=== PATIENT | male | born 2005 | race African-American/Black ===

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

== ENCOUNTER 2024-11-13 23:36 | Emergency (ER) | payer OTHER, MEDICAID, SELFPAY ==
[2024-11-13 23:38] VITALS: BP 105/60; PULSE 88; RESP 18; O2SAT 98
[2024-11-14 01:10] VITALS: BP 117/61; PULSE 65; RESP 18; TEMP 36.8; O2SAT 99
[2024-11-14 01:28] VITALS: BP 117/61; PULSE 65; RESP 16; O2SAT 100
--- NOTE | 2024-11-14 01:31 | ED_ITS ---
[facility] - General Adult General Chief complaint: Unspecified Stated complaint: pole fell on r foot, lac, wound care, cold symp Time Seen by Provider: 11/14/24 00:15 History of Present Illness HPI narrative: 19-year-old otherwise healthy male presenting to the emergency department for right foot abrasion. He presents from home via EMS. States that a small pole fell onto his right foot he has an abrasion. Wanted wound checked out. Ambulatory without any difficulty. Denies any pain. Tetanus is up-to-date according to the patient. Small abrasion noted to the dorsal aspect of the right foot. No signs of swelling, erythema, ecchymoses, displacement or fracture on exam. Related Data Allergies Allergy/AdvReac Type Severity Reaction Status Date / Time chlorpromazine (From Allergy Swelling Verified 02/18/23 20:29 Thorazine) Review of Systems Review of Systems: As reviewed above in [facility] Social History Social History Substance use type: marijuana Exam Narrative: GENERAL: [Well-appearing, well-nourished, and in no acute distress.] HEAD: [Normocephalic, atraumatic.] EYES: [PERRLA and EOMI.] ENT: Nares clear, no rhinorrhea or epistaxis. Mucous membranes moist. NECK: Supple. CHEST: [Clear to auscultation. No respiratory distress.] HEART: [Regular rate and rhythm]. No murmur heard. [Normal peripheral pulses.] ABDOMEN: [Soft, nondistended], [nontender], [No rigidity or guarding] EXTREMITIES: Normal range of motion. No edema. Full range of motion of the ankle and major joints of the right lower extremity. No tenderness to palpation over the area of injury. Small very superficial skin abrasion without any depth or laceration. No bleeding. No swelling or deformity. No pain with palpation. SKIN: Warm, dry, no rash. NEURO: [No focal deficits]. Alert and oriented [x3.] PSYCH: [Normal mood and affect.] Course Vital Signs Vital signs: Vital Signs Pulse Rate 88 11/13/24 23:38 Respiratory Rate 18 11/13/24 23:38 Blood Pressure 105/60 11/13/24 23:38 Pulse Oximetry 98 11/13/24 23:38 Oxygen Delivery Room Air 11/13/24 23:38 Temperature 36.8 C 11/14/24 01:10 Pulse Rate 70 11/14/24 01:49 Respiratory Rate 16 11/14/24 01:49 Blood Pressure 114/60 11/14/24 01:49 Pulse Oximetry 100 11/14/24 01:49 Oxygen Delivery Room Air 11/14/24 01:10 Medical Decision Making MDM Narrative Medical decision making narrative: 19-year-old otherwise healthy male presenting to the emergency department for right foot abrasion. He presents from home via EMS. States that a small pole fell onto his right foot and he has an abrasion. Wanted wound checked out. Ambulatory without any difficulty. Denies any pain. Tetanus is up-to-date according to the patient. Small abrasion noted to the dorsal aspect of the right foot. No signs of swelling, erythema, ecchymoses, displacement or fracture on exam. Normal DP pulse, normal vital signs. Abrasion covered with a bandage after bacitracin applied. No signs of a fracture. Discharged home. Ambulated without difficulty. Medical Records Medical records reviewed: Yes I reviewed the external patient's medical records. Vital Signs Vital Signs: Vital Signs Pulse Rate 88 11/13/24 23:38 Respiratory Rate 18 11/13/24 23:38 Blood Pressure 105/60 11/13/24 23:38 Pulse Oximetry 98 11/13/24 23:38 Oxygen Delivery Room Air 11/13/24 23:38 Temperature 36.8 C 11/14/24 01:10 Pulse Rate 70 11/14/24 01:49 Respiratory Rate 16 11/14/24 01:49 Blood Pressure 114/60 11/14/24 01:49 Pulse Oximetry 100 11/14/24 01:49 Oxygen Delivery Room Air 11/14/24 01:10 Discharge Plan Discharge Clinical Impression: Abrasion of foot Patient Disposition: Home Condition: Stable Instructions: Antibiotic Form, Abrasion (ED) Additional Instructions: No signs of significant injury, superficial abrasion to the right foot. Topical antibiotic such as bacitracin is all that is needed. Keep area covered with bandage. Tylenol and ibuprofen for pain control. Follow-up with regular doctor. Patient Language: Sinhala Prescriptions: New bacitracin 500 unit/gram ointment 1 applic topical Q8H Qty: 14 0RF Follow-up/Referrals: UNKNOWN,DOCTOR [Primary Care Provider] - Time of Disposition: 01:31
[2024-11-14] MEDS: BACITRACIN OINTMENT 15 GM TUBE 1 APPLIC TOPICAL (01:34)
[2024-11-14 01:49] VITALS: BP 114/60; PULSE 70; RESP 16; O2SAT 100
== END 2024-11-14 01:48 | disposition home or self-care (01) ==
PROVIDERS: Emergency Provider Student in an Organized Health Care Education/Training Program
DX: S90.811A Abrasion, right foot, initial encounter (principal); W20.8XXA Other cause of strike by thrown, projected or falling object, initial encounter
CPT/HCPCS: 99283; A9270

== ENCOUNTER 2024-11-15 14:07 | Emergency (ER) | payer SELFPAY ==
[2024-11-15 14:21] VITALS: BP 124/67; PULSE 122; RESP 16; TEMP 36.4; O2SAT 99
== END 2024-11-15 15:47 | disposition left against medical advice (07) ==
DX: J02.9 Acute pharyngitis, unspecified (principal)
CPT/HCPCS: 99199

== ENCOUNTER 2024-11-15 21:05 | Emergency (ER) | payer SELFPAY ==
[2024-11-15 21:06] VITALS: BP 119/52; PULSE 108; RESP 16; TEMP 36.7; O2SAT 97
--- NOTE | 2024-11-15 22:12 | PC.NURSE ---
Pt was escorted out by ED security due to pt harrassing other pt waiting to be seen. other Pts came up to intake desk complaining that this pt was going around asking visitors and pts for money. Pt states he wa waiting for his ride and denies asking for money. Pt is currently waiting at bus stop and is no longer wanting to be seen.
== END 2024-11-15 22:12 | disposition left against medical advice (07) ==
DX: R11.2 Nausea with vomiting, unspecified (principal)
CPT/HCPCS: 99199

== ENCOUNTER 2024-12-18 21:50 | Emergency (ER) | payer MEDICAID, SELFPAY ==
--- OUTSIDE RECORDS SUMMARY | 2024-12-16 23:30 | XMS_ITS | Encounter Summary ---
Author Organization [facility] Healthcare Address [address] [place] [address] Care Team Providers Care Digital Advertising Specialist Name Role Phone No, Physician Primary Care Provider [phone] No, Physician Unavailable No, Physician Unavailable No, Physician Unavailable No, Physician Unavailable Encounter Details Date Type Department Care Team (Late st Contact Info) Description 12/16/2024 11:30 PM CDT - 12/17/2024 12:17 AM CDT Emergency [facility] Emergency Department [address] [place] [id number] Discharge Disposition: Left without being seen Social History Tobacco Use Types Packs/Day Years Used Date Smoking Tobacco: Every Day Cigarettes Alcohol Use Standard Drinks/Week Comments Not Currently 0 (1 standard drink = 0.6 oz pur e alcohol) AUDIT-C Answer Date Recorded Q1: How often do you have a drink containing alc ohol? Never 08/30/2020 Average Number of Drinks Not on file 021 Frequency of Binge Drinking Not on file 10/2020 Social Connection and Isolation Panel Answer Date Recorded In a typical week, how many times do you talk on the phone with family, friends, or neighbors? Patient unable to answer 12/06/2024 How often do you get togethe r with friends or relatives? Patient unable to answer 12/06/2024 How often do you attend chur ch or spiritism services? Patient unable to answer 12/06/2024 Do you belong to any clubs o r organizations such as pentecostal groups, unions, fraternal or athletic groups, or school groups? Patient unable to answer 12/06/2024 How often do you attend meet ings of the clubs or organizations you belong to? Patient unable to answer 12/06/2024 Are you , , di vorced, , never , or living with a partner? Patient unable to answer 12/06/2024 Overall Financial Resource Strain (CARDIA) Answe r Date Recorded How hard is it for you to pa y for the very basics like food, housing, medical care, and heating? Very hard 12/06/2024 Hunger Vital Sign Answer Date Recorded Within the past 12 months, y ou worried that your food would run out before you got the money to buy more. Often true 12/07/19 25 Within the past 12 months, t he food you bought just didn't last and you didn't have money to get more. Often true 12/06/2024 PRAPARE - Transportation Answer Date Re corded In the past 12 months, has l ack of transportation kept you from medical appointments or from getting medications? Yes 11/24 In the past 12 months, has l ack of transportation kept you from meetings, work, or from getting things needed for daily living? Yes 12/06/2024 Housing Stability Vital Sign Answer Lv e Recorded In the last 12 months, was t here a time when you were not able to pay the mortgage or rent on time? Yes 12/06/2024 In the past 12 months, how m any times have you moved where you were living? 1 12/06/2024 At any time in the past 12 m [facility], were you homeless or living in a group home (including now)? Yes 12/06/2024 [facility] Utilities Answer Date Recorded In the past 12 months has th e [employer], gas, oil, or water [employer] threatened to shut off services in your home? Yes 12/06/2024 Personal Safety Answer Date Recorded Have you ever been in or are you currently in a harmful physical or emotional relationship or is someone making you feel afraid or unsafe? 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 Gender Identity Non-Binary 12/11/2024 8:10 AM CDT Sexual Orientation Straight 08/25/2020 2: 28 AM CDT documented as of this encounter Medications at Time of Discharge cetirizine (ZyrTEC) 10 mg tablet Take 1 tablet (10 mg total) by mouth daily 30 tablet 4 cetirizine (ZyrTEC) 10 mg tabletIndications:S easonal Allergic Rhinitis Take 1 tablet (10 mg total) by mouth daily 30 tablet 5 12/21/19 25 diphenhydrAMINE 25 mg capsule Take 1 tablet/capsule (25 mg total) by mouth every 6 (six) hours as needed for itching 20 capsule 4 diphenhydrAMINE 25 mg capsule Take 1 tablet/capsule (25 mg total) by mouth every 6 (six) hours as needed for itching or allergies 20 capsule 5 hydrOXYzine (ATARAX) 25 mg tabletIndications:a nxiety Take 1 tablet (25 mg total) by mouth every 6 (six) hours as needed for anxiety 120 tablet 3 ibuprofen (ADVIL,MOTRIN) 800 mg tablet Take 1 tablet (800 mg total) by mouth 3 (three) times a day 21 tablet 5 ketorolac (TORADOL) 10 mg tabletIndications:S evere Pain Take 1 tablet (10 mg total) by mouth 4 (four) times a day as needed for pain Take with food. 20 tablet 5 ketotifen (ZADITOR) 0.025 % ophthalmic solutionIndications :Allergic Conjunctivitis Administer 1 drop into the right eye 2 (two) times a day 5 mL 3 loratadine (CLARITIN) 10 mg tablet Take 1 tablet (10 mg total) by mouth daily 20 tablet 4 03/26/20 25 melatonin tablet Take 1 tablet (3 mg total) by mouth nightly as needed for sleep 30 tablet 1 mupirocin (BACTROBAN) 2 % ointment Apply topically 2 (two) times a day Apply with each dressing change. Collaborating physician Tong Puga MD 22 g 5 naproxen (NAPROSYN) 500 mg tablet Take 1 tablet (500 mg total) by mouth 2 (two) times a day with meals 30 tablet 4 ondansetron ODT (ZOFRAN-ODT) 4 mg disintegrating tablet Dissolve 1 tablet for mild to moderate nausea or vomiting or 2 tablets for severe nausea or vomiting oral twice a day as needed. 15 tablet 5 pseudoephedrine (SUDAFED) 30 mg tabletIndications:N greg Congestion Take 1 tablet (30 mg total) by mouth every 4 (four) hours as needed for congestion 30 tablet 5 risperiDONE (RisperDAL) 2 mg tabletIndications:S chizophrenia Take 1 tablet (2 mg total) by mouth 2 (two) times a day 60 tablet 1 5 02/02/20 25 documented as of this encounter Discharge Disposition Disposition Code Departure Means Destination Left without being seen documented in this encounter ED Notes * Yoly Paz RN - 12/17/2024 12:02 AM CDT Prior to pt being triaged, pt had gotten back in touch with EMS again. EMS crew and [employer] Applied Anthropologist arrived. Pt states that he no longer wanted to be seen at our facility and made samestatement x2. This RN and [facility] Applied Anthropologist spoke with pt. Pt states he wants to go tofacility that [facility] it project lead mentioned that can help him get set up with a Case Work er. Pt ambulatory with steady and even gait to the ambulance. Denies concerns at this time. Yoly Paz RN 12/17/24 0016 documented in this encounter Plan of Treatment Not on file documented as of this encounter Visit Diagnoses Not on filedocumented in this encounter Care Teams Digital Advertising Specialist Relationship Specialty Start Date End Date No, Physician PCP - General 12/09/24 No, Physician 10/24/24 No, Physician 12/09/24 No, Physician 10/24/24 No, Physician 03/16/23 documented as of this encounter
--- OUTSIDE RECORDS SUMMARY | 2024-12-17 15:12 | XMS_ITS | Encounter Summary ---
Author Organization [facility] Healthcare Address [address] [place] [address] Care Team Providers Care Merchandise Deliverer Name Role Phone No, Physician Primary Care Provider [phone] No, Physician Unavailable No, Physician Unavailable No, Physician Unavailable No, Physician Unavailable Reason for Visit * Reason Comments Wellness Visit Encounter Details Date Type Department Care Team (Late st Contact Info) Description 12/17/2024 3:12 PM CDT - 12/17/2024 4:19 PM CDT Emergency [facility] Emergency Department [address] [place] [id number] Sore throat (Primary Dx) Discharge Disposition: Discharge to home or self care Social History Tobacco Use Types Packs/Day Years [...] 12/06/2024 How often do you attend chur or adventist services? Patient unable to answer 12/06/2024 Do you belong to any clubs o r organizations such as faith groups, unions, fraternal or athletic groups, or [...] any time in the past 12 m [facility], were you homeless or living in a fdc (including now)? Yes 12/06/2024 [facility] Utilities Answer Date Recorded In the past 12 months has e Hel[employer], gas, oil, or water [employer] threatened to shut off services in your home? Yes 12/06/2024 Personal Safety Answer Date Recorded Have you ever been in or are you currently in a harmful physical or emotional relationship or is someone making you feel afraid or unsafe? 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 Gender Identity Non-Binary 12/11/2024 8:10 AM CDT Sexual Orientation Straight 08/25/2020 2: 28 AM CDT documented as of this encounter Last Filed Vital Signs Vital Sign Reading Time Taken Comments Blood Pressure 98/60 12/17/2024 1:55 PM CDT Pulse 70 12/17/2024 1:55 PM CDT Temperature 36.7 C (98 F) 12/17/2024 1:55 PM CDT Respiratory Rate 16 12/17/2024 1:55 PM CDT Oxygen Saturation 100% 12/17/2024 1:55 PM CDT Inhaled Oxygen Concentration - - Weight 72.6 kg (160 lb) 12/17/2024 1:54 PM CDT Height 190.5 cm (6' 3) 12/17/2024 1:54 PM CDT Body Mass Index 20 12/17/2024 1:54 PM CDT documented in this encounter Discharge Instructions * Discharge Instructions* Cristina Alfredo PA - 12/17/2024 4:09 PM CDT No sign of any bacterial throat infection on my exam Recommend lots of fluids and rest * Attachments The following attachments cannot be sent through Care Everywhere. * Pharyngitis, Viral (Lao) documented in this encounter Medications at Time of Discharge [...] Discharge Disposition Disposition Code Departure Means Destination Comment s Discharge to home or self care documented in this encounter ED Notes * Lynsey Arellano RN - 12/17/2024 4:19 PM CDT Pt given d/c paperwork at this time. Pt educated about possible follow up care. Pt has no needs or concerns. Pt ambulated self out. Pt is A&04. Lynsey Arellano RN 12/17/24 1619 * Cristina Alfredo PA - 12/17/2024 3:54 PM CDT EMERGENCY DEPARTMENT SERVICES NOTE Patient Name: Dveen Aquino AGE: 19 y.o. : 2005 ED Encounter Date and Time: 12/17/2024 3:12 PM Primary Care Provider: Erica Physician Please note that this report was generated using speech recognition software. Sound alike errors may be contained in this report. Every effort was made to avoid them CHIEF COMPLAINT: Chief Complaint Patient presents with Wellness Visit HISTORY OF PRESENT ILLNESS: The history was obtained from a review of available records and patient Deven Aquino is a 19 y.o. adult with a history of schizoaffective disorder who presents to theemergency department for evaluation of sore throat. States he has had a sore throat for the past several weeks since being diagnosed with a virus. He reportedly told EMS he has been having nausea/vomiting after eating for several weeks (though EMS reported he was actively eating while complaining of the symptoms), however he has no complaints of this to me. He denies any other complaints. CHART REVIEW: Very frequent ER visits. Fifty-two ER visits/check-ins in the month of November 2024 including for ERvisits yesterday. Strep swab yesterday was negative. Culture sent. PAST MEDICAL HISTORY: Past Medical History: Diagnosis Date ADD (attention deficit disorder) ADHD Cannabinoid hyperemesis syndrome Emotional disturbance of childhood Homeless Oppositional defiant disorder PTSD (post-traumatic stress disorder) Schizoaffective disorder (HCC) PAST SURGICAL HISTORY: No past surgical history on file. MEDICATIONS: Current Facility-Administered Medications on File Prior to Encounter Medication Dose Route Frequency Provider Last Rate Last Admin [DISCONTINUED] GENERIC EXTERNAL MEDICATION GENERIC EXTERNAL DATA PROVIDER Current Outpatient Medications on File Prior to Encounter Medication Sig Dispense Refill cetirizine (ZyrTEC) 10 mg tablet Take 1 tablet (10 mg total) by mouth daily 30 tablet 0 cetirizine (ZyrTEC) 10 mg tablet Take 1 tablet (10 mg total) by mouth daily 30 tablet 0 diphenhydrAMINE 25 mg capsule Take 1 tablet/capsule (25 mg total) by mouth every 6 (six) hours as needed for itching 20 capsule 0 diphenhydrAMINE 25 mg capsule Take 1 tablet/capsule (25 mg total) by mouth every 6 (six) hours as needed for itching or allergies 20 capsule 0 hydrOXYzine (ATARAX) 25 mg tablet Take 1 tablet (25 mg total) by mouth every 6 (six) hours as needed for anxiety 120 tablet 0 ibuprofen (ADVIL,MOTRIN) 800 mg tablet Take 1 tablet (800 mg total) by mouth 3 (three) times a day 21 tablet 0 ketorolac (TORADOL) 10 mg tablet Take 1 tablet (10 mg total) by mouth 4 (four) times a day as needed for pain Take with food. 20 tablet 0 ketotifen (ZADITOR) 0.025 % ophthalmic solution Administer 1 drop into the right eye 2 (two) times a day 5 mL 0 loratadine (CLARITIN) 10 mg tablet Take 1 tablet (10 mg total) by mouth daily 20 tablet 0 melatonin tablet Take 1 tablet (3 mg total) by mouth nightly as needed for sleep 30 tablet 0 mupirocin (BACTROBAN) 2 % ointment Apply topically 2 (two) times a day Apply with each dressing change. Collaborating physician Tong Puga MD 22 g 0 naproxen (NAPROSYN) 500 mg tablet Take 1 tablet (500 mg total) by mouth 2 (two) times a day with meals 30 tablet 0 ondansetron ODT (ZOFRAN-ODT) 4 mg disintegrating tablet Dissolve 1 tablet for mild to moderate nausea or vomiting or 2 tablets for severe nausea or vomiting oral twice a day as needed. 15 tablet 0 propranoloL (INDERAL) 20 mg tablet Take 1 tablet (20 mg total) by mouth 2 (two) times a day 60 tablet 0 pseudoephedrine (SUDAFED) 30 mg tablet Take 1 tablet (30 mg total) by mouth every 4 (four) hours asneeded for congestion 30 tablet 0 risperiDONE (RisperDAL) 2 mg tablet Take 1 tablet (2 mg total) by mouth 2 (two) times a day 60 tablet 1 ALLERGIES: Allergies Allergen Reactions Blueberry Swollen tongue, Angioedema and Swelling Blueberry Flavor Angioedema Chlorpromazine Swelling, Anaphylaxis and Angioedema My throat swell up. Shellfish Swelling and Anaphylaxis IMMUNIZATIONS: Immunization History Administered Date(s) Administered DTaP 2004, 02/17/2005, 06/03/2009, 03/13/2010 DTaP / Hep B / IPV 2004, 02/17/2005, 06/03/2009 DTaP / HiB / IPV 03/13/2010 DTaP 5 Pertussis 2004, 02/17/2005, 06/03/2009, 03/13/2010 HPV, Quadrivalent 03/26/2016 HPV9 03/26/2016 Hep A, Adult 06/03/2009 Hep A, Pediatric 06/03/2009 Hep A, Unspecified 06/03/2009 Hep B Vaccine 2004, 2004, 02/17/2005, 06/03/2009 Hep B, Adolescent or Pediatric 2004, 2004, 06/05/2009 HiB 06/03/2009, 03/13/2010 Hib (PRP-OMP) 06/03/2009, 03/13/2010 IPV 2004, 02/17/2005, 06/03/2009, 03/13/2010 Influenza, Quadrivalent, Cell Culture-based MDCK, Preservative Free, Antibiotic Free, Vcbzbzkfypegk37/01/2016 Influenza, Quadrivalent, Split, Preservative Free, Intramuscular 03/26/2016 Influenza, Trivalent, Cell Culture-based MDCK, Preservative Free, Antibiotic Free, Intramuscular 03/26/2016 Influenza, Trivalent, Preservative Free, Intramuscular 03/26/2016 MMR 06/03/2009, 03/13/2010 Meningococcal MCV4P (Menactra) 03/26/2016 Tdap 03/26/2016 Varicella 06/03/2009, 03/13/2010 FAMILY HISTORY: No family history on file. SOCIAL HISTORY: reports that he has been smoking cigarettes. He does not have any smokeless tobacco history on file. He reports current drug use. Drug: Marijuana. PHYSICAL EXAMINATION: Vitals: 12/17/24 1354 12/17/24 1355 BP: 98/60 Pulse: 70 Resp: 16 Temp: 36.7 ??C (98 ??F) SpO2: 100% Weight: 72.6 kg (160 lb) Height: 190.5 cm (6' 3) Afebrile, o2 WNL on RA, no tachycardia Physical Exam Vitals and nursing note reviewed. Constitutional: General: He is not in acute distress. Appearance: He is not ill-appearing. Comments: Sleeping. Wakes easily to voice. HENT: Head: Normocephalic and atraumatic. Mouth/Throat: Mouth: Mucous membranes are moist. Pharynx: Oropharynx is clear. Uvula midline. No pharyngeal swelling, oropharyngeal exudate, posterior oropharyngeal erythema or uvula swelling. Tonsils: No tonsillar exudate or tonsillar abscesses. Eyes: Extraocular Movements: Extraocular movements intact. Cardiovascular: Rate and Rhythm: Normal rate. Pulmonary: Effort: Pulmonary effort is normal. No respiratory distress. Skin: General: Skin is dry. Neurological: General: No focal deficit present. Mental Status: He is oriented to person, place, and time. Psychiatric: Behavior: Behavior normal. Medications administered: Medications - No data to display Laboratory: Labs Reviewed - No data to display Imaging Results: No orders to display EMERGENCY DEPARTMENT COURSE & MEDICAL DECISION MAKING The patient was evaluated by myself as well as by the nursing staff in the emergency department. I have reviewed this patient's current vital signs. I have examined the available pertinent past medical records and the notes by our nursing staff for this visit. 19-year-old male presenting to the ED with complaints of sore throat. Says he was diagnosed with a viral several weeks ago and the sore throat has been ongoing. He was seen at outside hospital yesterday for sore throat, had strep testing which was negative. On arrival to the ED patient is afebrile without tachycardia. Overall he is very well-appearing. He is actually sleeping upon my initial evaluation, wakes easily to voice. Appears he has been eating snacks including nearly an entire sandwich, chips, and a drink. Normal oropharyngeal exam. He is tolerating secretions without difficulty. Highly doubt any bacterial infection. Likely viral in nature. Do not feel any further testing is indicated today. Supportive care advised. ED return precautions. Patient verbalized understanding and agrees with the plan. FINAL DIAGNOSES: 1. Sore throat DISPOSITION AND PLAN: - Discharge to home - Supportive care - PCP follow up - ED return precautions CONDITION ON DISPOSITION: Stable LIUDMILA Hernadez CC: Medical Records/Dry Wall Installer to verify correct current PCP and send copy of this H&P note to correct current PCP via PCP's preferred mode of contact. Cristina Alfredo PA 12/17/24 1635 * Lynsey Arellano RN - 12/17/2024 3:20 PM CDT Pt presents to the ED with c/o a virus. Pt was dx with rhinovirus three weeks. Told triage he was nauseous but the only complaint he has is he has a sore throat in assessment area. Pt is currentlyA&04. Lynsey Arellano RN 12/17/24 1522 * Tong Ray RN - 12/17/2024 2:00 PM CDT Pt bibems with c/o N/V after eating for weeks. He told this to ems while eating. Also c/o dx of norovirus 3 weeks ago. Pt has walked in and out of waiting room multiple times since arrival. documented in this encounter Plan of Treatment Not on file documented as of this encounter Visit Diagnoses Diagnosis Sore throat- Primary Acute pharyngitis documented in this encounter Care Teams Merchandise Deliverer Relationship Specialty Start Date End Date No, Physician PCP - General 12/09/24 No, Physician 10/24/24 No, Physician 12/09/24 No, Physician 10/24/24 No, Physician 03/16/23 documented as of this encounter
--- OUTSIDE RECORDS SUMMARY | 2024-12-17 20:20 | XMS_ITS | Encounter Summary ---
Author Organization [facility] Healthcare Address [address] [place] [address] Care Team Providers Care Sheet Manager Name Role Phone No, Physician Primary Care Provider [phone] No, Physician Unavailable No, Physician Unavailable No, Physician Unavailable No, Physician Unavailable Reason for Visit * Reason Comments Sore Throat Encounter Details Date Type Department Care Team (Late st Contact Info) Description 12/17/2024 8:20 PM CDT - 12/17/2024 10:37 PM CDT Emergency [facility] Emergency Department [address] [place] [address] Viral pharyngitis (Primary Dx); Malingering Discharge Disposition: Discharge to home or self [...] How often do you attend chur or jainism services? Patient unable to answer 12/06/2024 Do you belong to any clubs o r organizations such as roman catholic groups, unions, fraternal or athletic groups, or [...] any time in the past 12 m [facility], were you homeless or living in a [place] health care facility (including now)? Yes 12/06/2024 [facility] Utilities Answer Date Recorded In the past 12 months has th e electric, gas, oil, or water company threatened to shut off services in your home? Yes 12/06/2024 Personal Safety Answer Date Recorded Have you ever been in or are you currently in a harmful physical or emotional relationship or is someone making you feel afraid or unsafe? 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 Gender Identity Non-Binary 12/11/2024 8:10 AM CDT Sexual Orientation Straight 08/25/2020 2 :28 AM CDT documented as of this encounter Last Filed Vital Signs Vital Sign Reading Time Taken Comments Blood Pressure 116/68 12/17/2024 10:37 PM CDT Pulse 74 12/17/2024 10:37 PM CDT Temperature 36.8 C (98.3 F) 12/17/2024 7:22 PM CDT Respiratory Rate 15 12/17/2024 10:37 PM CDT Oxygen Saturation 98% 12/17/2024 10:37 PM CDT Inhaled Oxygen Concentration - - Weight 72.6 kg (160 lb) 12/17/2024 7:22 PM CDT Height 190.5 cm (6' 3) 12/17/2024 7:22 PM CDT Body Mass Index 20 12/17/2024 7:22 PM CDT documented in this encounter Discharge Instructions * Discharge Instructions* Edilia Walden PA - 12/17/2024 10:21 PM CDT Follow-up care Follow up with your healthcare provider, or as advised. When to seek medical advice Call your healthcare provider right away if any of these occur: Cough with lots of colored sputum (mucus) Severe headache; face, neck, or ear pain Difficulty swallowing due to throat pain Fever of 100.4??F (38??C) or higher, or as directed by your healthcare provider * Attachments The following attachments cannot be sent through Care Everywhere. * URI, Viral, No Abx (Adult) (Mongolian) documented in this encounter Medications at Time [...] documented in this encounter ED Notes * Maryanne He RN - 12/17/2024 7:24 PM CDT PT sates that he has a virus, abd pain and nausea. Started 4 weeks ago. Has recently been seen at multiple ER for same complaint. CC: the virus in his throat. documented in this encounter Plan of Treatment Not on file documented as of this encounter Visit Diagnoses Diagnosis Viral pharyngitis- Primary Acute pharyngitis Malingering Person feigning illness documented in this encounter Care Teams Sheet Manager Relationship Specialty Start Date End Date No, Physician PCP - General 12/09/24 No, Physician 10/24/24 No, Physician 12/09/24 No, Physician 10/24/24 No, Physician 03/16/23 documented as of this encounter
--- OUTSIDE RECORDS SUMMARY | 2024-12-17 20:20 | XMS_ITS | Encounter Summary ---
Author Organization [facility] Healthcare Address [address] [place] [address] Care Team Providers Care Bundle Tier Name Role Phone No, Physician Primary Care Provider [phone] No, Physician Unavailable No, Physician Unavailable No, Physician Unavailable No, Physician Unavailable Reason for Visit * Reason Comments Sore Throat Encounter Details Date Type Department Care Team (Late st Contact Info) Description 12/17/2024 8:20 PM CDT - 12/17/2024 10:37 PM CDT Emergency [facility] Emergency Department [address] [place] [address] Viral pharyngitis (Primary Dx); Malingering Discharge Disposition: [...] How often do you attend chur or hoahaoism services? Patient unable to answer 12/06/2024 Do you belong to any clubs o r organizations such as latter day groups, unions, fraternal or athletic groups, or [...] in the past 12 m [facility], were you homeless or living in a nursing home (including now)? Yes 12/06/[address] [facility] Utilities Answer Date Recorded In the [...] AM CDT Legal Sex Male 2:45 AM HEAD OF ETHICS AND COMPLIANCE Gender Identity Non-Binary 12/11/2024 8:10 AM CDT [...] Everywhere. * URI, Viral, No Abx (Adult) (Luxembourgish) documented in this encounter Medications at Time [...] illness documented in this encounter Care Teams Bundle Tier Relationship Specialty Start Date End Date No, Physician PCP - General 12/09/24 No, Physician 10/24/24 No, Physician 12/09/24 No, Physician 10/24/24 No, Physician 03/16/23 documented as of this encounter
--- OUTSIDE RECORDS SUMMARY | 2024-12-18 00:01 | XMS_ITS | Encounter Summary ---
Author Organization [facility] Healthcare Address [address] [place] [address] Care Team Providers Care Scow Hand Name Role Phone No, Physician Primary Care Provider [phone] No, Physician Unavailable No, Physician Unavailable No, Physician Unavailable No, Physician Unavailable Reason for Visit * Reason Comments Nausea Encounter Details Date Type Department Care Team (Late st Contact Info) Description 12/18/2024 12:01 AM CDT - 12/18/2024 5:36 AM CDT Emergency [facility] Emergency Department [address] [place] [id number] Dequan Wong MD [address] [place] [address] Malingering (Primary Dx) Discharge Disposition: Discharge to home [...] answer 12/06/2024 How often do you attend [facility] or pentecostal services? Patient unable to answer 12/06/2024 Do you belong to any clubs o r organizations such as jehovah's witness groups, unions, fraternal or athletic groups, or [...] any time in the past 12 m [facility], were you homeless or living in a jail (including now)? 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 Gender Identity Non-Binary 12/11/2024 8:10 AM CDT Sexual Orientation Straight 08/25/2020 2: 28 AM CDT documented as of this encounter Last Filed Vital Signs Vital Sign Reading Time Taken Comments Blood Pressure 116/79 12/18/2024 5:35 AM CDT Pulse 80 12/18/2024 5:35 AM CDT Temperature 37.2 C (98.9 F) 12/18/2024 12:08 AM CDT Respiratory Rate 16 12/18/2024 5:35 AM CDT Oxygen Saturation 98% 12/18/2024 5:35 AM CDT Inhaled Oxygen Concentration - - Weight 68 kg (150 lb) 12/18/2024 12:08 AM CDT Height 190.5 cm (6' 3) 12/18/2024 12:08 AM CDT Body Mass Index 18.75 12/18/2024 12:08 AM CDT documented in this encounter Discharge Instructions * Discharge Instructions* Dequan Wong MD - 12/18/2024 2:30 AM CDT Continue any medications currently being taken without any change. Follow up with the primary care physician for further evaluation of medical needs as needed. documented in this encounter Medications at Time [...] a day as needed. 15 tablet 5 propranoloL (INDERAL) 20 mg tablet Take 1 tablet (20 mg total) by mouth 2 (two) times a day 60 tablet 1 pseudoephedrine (SUDAFED) 30 mg tabletIndications:N greg Congestion [...] documented in this encounter ED Notes * Dequan Wong MD - 12/18/2024 2:23 AM CDT HPI Chief Complaint Patient presents with Nausea 19-year-old male with a history ADHD, asthma, schizophrenia, schizoaffective disorder, oppositionaldefiant disorder, 2 the emergency department with no specific complaints. He came to the ED by ambulance, with a complaint to EMS that he was nauseated. In the emergency department he states he wouldlike to sleep, you would like something to eat. When asked if he has a place to go a place to live he states that he does. Patient came to the ED twice yesterday for sore throat, diagnosed with a viral upper respiratory infection. When asked if his throat hurts he states he has no throat pain currently. Patient History: Patient Active Problem List Diagnosis Date Noted Superficial laceration of right foot 11/13/2024 Homeless 05/05/2023 Malingering 01/30/2023 Nonadherence to medical treatment 07/02/2022 PTSD (post-traumatic stress disorder) 11/13/2020 Cannabis use disorder, severe, dependence (HCC) 09/16/2020 Conduct disorder, adolescent onset type 09/16/2020 Schizoaffective disorder, bipolar type (HCC) 09/16/2020 Pain due to dental caries 08/29/2020 Schizophreniform disorder (HCC) 08/27/2020 Oppositional defiant disorder 03/24/2016 Asthma 03/23/2016 Child in foster care 02/18/2016 Influenza 05/28/2011 Past Medical History: Diagnosis Date ADD (attention deficit disorder) ADHD Cannabinoid hyperemesis syndrome Emotional disturbance of childhood Homeless Oppositional defiant disorder PTSD (post-traumatic stress disorder) Schizoaffective disorder (HCC) No past surgical history on file. No family history on file. Social History Tobacco Use Smoking status: Every Day Types: Cigarettes Smokeless tobacco: Not on file Vaping Use Vaping status: Never Used Substance and Sexual Activity Alcohol use: Not Currently Drug use: Yes Types: Marijuana Sexual activity: Not Currently Partners: Female control/protection: Condom Male Social History Social History Narrative Merged History Encounter Merged History Encounter Review of Systems Review of Systems HENT: Negative for congestion, ear pain, hearing loss, sore throat and trouble swallowing. Respiratory: Negative for cough and shortness of breath. Cardiovascular: Negative for chest pain. Gastrointestinal: Negative for abdominal pain, nausea and vomiting. Genitourinary: Negative for difficulty urinating and dysuria. Musculoskeletal: Positive for arthralgias. Skin: Negative. Neurological: Negative for weakness. Hematological: Does not bruise/bleed easily. Physical Exam ED Triage Vitals [12/18/24 0008] Temp Pulse Resp BP SpO2 37.2 ??C (98.9 ??F) 85 16 119/65 99 % Temp src Heart Rate Source Patient Position BP Location FiO2 (%) Temporal -- -- -- -- Height Height Method Weight Weight Method 1.905 m (6' 3) Stated 68 kg (150 lb) -- Physical Exam Vitals and nursing note reviewed. Constitutional: General: He is not in acute distress. Appearance: He is normal weight. He is not ill-appearing, toxic-appearing or diaphoretic. HENT: Head: Normocephalic. Right Ear: External ear normal. Left Ear: External ear normal. Mouth/Throat: Mouth: Mucous membranes are moist. Pharynx: Oropharynx is clear. Eyes: General: No scleral icterus. Cardiovascular: Rate and Rhythm: Normal rate and regular rhythm. Pulses: Normal pulses. Pulmonary: Effort: Pulmonary effort is normal. Breath sounds: Normal breath sounds. No wheezing, rhonchi or rales. Abdominal: General: Abdomen is flat. Bowel sounds are normal. Tenderness: There is no abdominal tenderness. Skin: General: Skin is warm and dry. Neurological: Mental Status: He is alert and oriented to person, place, and time. MDM Medical Decision Making Patient has eaten 1 sandwich, has 2 sandwiches left in his tray, has been drinking water in the emergency department. Patient states he would like to sleep for approximately another hour and then maybe discharged. He denies any complaint at this time, his examination is relatively unremarkable. History of schizoaffective disorder, ADHD, probable Liliane going, no place to go. Attending Summary of Care Malingering Dequan Wong MD 12/18/24 [id number] * Roro Menard RN - 12/18/2024 12:03 AM CDT Pt arrived via ems with reports of nausea and vomiting, abd pain, c/o virus in his throat, pt speaking in full clear sentences, pt states I don't want labs, this rn explained to him if he is just here for some where to rest and stay safe, pt now asking for food * Nadine Hung RN - 12/18/2024 12:01 AM CDT Bed: ED05 Expected date: Expected time: Means of arrival: Comments: Medic 121 Nadine Hung, FABIAN 12/18/24 0001 documented in this encounter Plan of Treatment Not on file documented as of this encounter Visit Diagnoses Diagnosis Malingering- Primary Person feigning illness documented in this encounter Care Teams Scow Hand Relationship Specialty Start Date End Date No, Physician PCP - General 12/09/24 No, Physician 10/24/24 No, Physician 12/09/24 No, Physician 10/24/24 No, Physician 03/16/23 documented as of this encounter
--- OUTSIDE RECORDS SUMMARY | 2024-12-18 00:01 | XMS_ITS | Encounter Summary ---
Author Organization [facility] Healthcare Address [address] [place] [address] Care Team Providers Care Flaker Tender Name Role Phone No, Physician Primary Care Provider [phone] No, Physician Unavailable No, Physician Unavailable No, Physician Unavailable No, Physician Unavailable Reason for Visit * Reason Comments Nausea Encounter Details Date Type Department Care Team (Late st Contact Info) Description 12/18/2024 12:01 AM CDT - 12/18/2024 5:36 AM CDT Emergency [facility] Emergency Department [address] [place] [id number] Dequan Wong MD [address] [place] [address] Malingering (Primary Dx) Discharge Disposition: Discharge to [...] answer 12/06/2024 How often do you attend [facility] or uatsdin services? Patient unable to answer 12/06/2024 Do you belong to any clubs o r organizations such as amish groups, unions, fraternal or athletic groups, or [...] any time in the past 12 m [facility], were you homeless or living in a long term (including now)? 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 Gender Identity Non-Binary 12/11/2024 8:10 AM CDT [...] 09/16/2020 Schizoaffective disorder, bipolar type ([facility]) 09/16/2020 Pain due to dental caries 08/29/2020 Schizophreniform disorder ([facility]) 08/27/2020 Oppositional defiant disorder 03/24/2016 Asthma 03/23/2016 Child in foster care 02/18/2016 Influenza 05/28/2011 Past Medical History: Diagnosis Date ADD (attention deficit disorder) ADHD Cannabinoid hyperemesis syndrome Emotional disturbance of childhood Homeless Oppositional defiant disorder PTSD (post-traumatic stress disorder) Schizoaffective disorder ([facility]) No past surgical history on file. No [...] illness documented in this encounter Care Teams Flaker Tender Relationship Specialty Start Date End Date No, Physician PCP - General 12/09/24 No, Physician 10/24/24 No, Physician 12/09/24 No, Physician 10/24/24 No, Physician 03/16/23 documented as of this encounter
--- OUTSIDE RECORDS SUMMARY | 2024-12-18 21:53 | XMS_ITS | Clinical Summary ---
Author Organization [facility] Address [address] [place] [address] Phone Care Team Providers Care Assistant Health Educator Name Role Phone Provider, Unknown Primary Care Provider Unavaila ble Allergies Active Allergy Reactions Criticality Noted Date Comments Chlorpromazine Swelling Medium 10/06/2022 Medications No known medications Encounters Date Type Department Care Team Description 11/10/2024 5:28 PM CDT - 11/10/2024 5:51 PM CDT Emergency [facility] Emergency [address] [place] [id number] Dante Garland, AWA Nausea Discharge Disposition: Left Against Medical Advice 11/10/2024 9:58 AM CDT - 11/10/2024 11:02 AM CDT Emergency [facility] Emergency [address] [place] [phone] Dante Garland, PAC Malingering Discharge Disposition: Discharged to home or Selfcare 11/10/2024 Travel from Last 3 Months Social History Tobacco Use Types Packs/Day Years Used Date Smoking Tobacco: Unknown Tobacco Cessation:Counseling Given: Not Answered Sex and Gender Information Value Date Recorded Sex Assigned at Not on file Legal Sex Male 10:01 PM CDT Gender Identity Not on file Sexual Orientation Not on file Last Filed Vital Signs Vital Sign Reading Time Taken Comments Blood Pressure 115/50 11/10/2024 5:39 PM CDT Pulse 91 11/10/2024 5:39 PM CDT Temperature 36.6 C (97.8 F) 11/10/2024 5:39 PM CDT Respiratory Rate 16 11/10/2024 5:39 PM CDT Oxygen Saturation 95% 11/10/2024 5:39 PM CDT Inhaled Oxygen Concentration - - Weight 70.3 kg (155 lb) 11/10/2024 5:39 PM CDT Height 190.5 cm (6' 3) 11/10/2024 5:39 PM CDT Body Mass Index 19.37 11/10/2024 5:39 PM CDT Plan of Treatment Not on file Insurance MEDICAID [place] Care Teams Assistant Health Educator Relationship Specialty Start Date End Date Provider, Unknown UNKNOWN PCP - General 02/11/23
--- OUTSIDE RECORDS SUMMARY | 2024-12-18 21:53 | XMS_ITS | Encounter Summary ---
Author Organization [facility] Healthcare Address [address] [place] [address] Care Team Providers Care Rerecording Mixer Name Role Phone No, Physician Primary Care Provider [phone] No, Physician Primary Care Provider No, Physician Primary Care Provider [phone] No, Physician Primary Care Provider No, Physician Primary Care Provider No, Physician Unavailable No, Physician Unavailable No, Physician Unavailable No, Physician Unavailable No, Physician Unavailable Encounter Details Date Type Department Care Team (Late st Contact Info) Description 02/26/2023 Documentation [facility] Case Management [address] [place] [address] Zulema Sanchez MSW Social History Tobacco Use Types Packs/Day Years Used Date Smoking Tobacco: Former Alcohol Use Standard Drinks/Week Comments Not Currently 0 (1 standard drink = 0.6 oz pur e alcohol) AUDIT-C Answer Date Recorded Q1: How often do you have a drink containing alc ohol? 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 MUSEUM TOUR GUIDE spoke with LIUDMILA who stated patient will not be speaking with today. MUSEUM TOUR GUIDE spoke with patient who stated he does not have any family in the area. He stated he is from [place], but wanted to know if he could get transportation to his grandfather who is living at the [address] The patient stated he will be starting a new job with [employer] next week. Nitish RN/CM will set up transportation for patient. MUSEUM TOUR GUIDE gave patient resources for pantries, shelters, transportation and [facility]. Zulema Sanchez LMSW [phone] documented in this encounter Plan of Treatment Not on file documented as of this encounter Visit Diagnoses Not on filedocumented in this encounter Additional Health Concerns Infection Onset Date Last Indicated Resolved Time COVID: Suspected 03/26/2023 03/26/2023 03/26/2023 8:04 AM INSPECTING MACHINE ADJUSTER COVID: Suspected 03/31/2023 03/31/2023 03/31/2023 8:22 PM INSPECTING MACHINE ADJUSTER COVID: Suspected 08/29/2023 08/29/2023 08/29/2023 9:48 PM CDT Human metapneumovirus, conta ct + droplet 08/29/2023 08/29/2023 09/05/2023 3:05 AM C DT COVID: Suspected 12/09/2023 12/09/2023 12/09/2023 10:21 PM CDT COVID: Suspected 12/29/2023 12/29/2023 12/29/2023 10:56 PM CDT Rhino/Enterovirus 12/29/2023 12/29/2023 01/05/2024 3:05 AM CDT COVID: Suspected 11/11/2024 11/11/2024 11/11/2024 9:49 AM CDT COVID: Suspected 11/16/2024 11/16/2024 11/16/2024 5:37 PM CDT COVID: Suspected 12/06/2024 12/06/2024 12/06/2024 10:20 PM CDT documented as of this encounter Care Teams Rerecording Mixer Relationship Specialty Start Date End Date No, Physician PCP - General 09/12/20 03/15/23 No, Physician PCP - General 03/16/23 11/24/23 No, Physician PCP - General 11/25/23 10/23/24 No, Physician PCP - General 10/24/24 12/08/24 No, Physician PCP - General 12/09/24 No, Physician 11/25/23 10/23/24 No, Physician 10/24/24 No, Physician 12/09/24 No, Physician 10/24/24 No, Physician 03/16/23 documented as of this encounter
--- OUTSIDE RECORDS SUMMARY | 2024-12-18 21:53 | XMS_ITS | Clinical Summary ---
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 Discharge Disposition: Discharge to home or self care 11/19/2024 11:02 PM CDT - 11/20/2024 12:22 AM CDT Emergency [facility] Emergency Department [address] [place] [address] Nausea (Primary Dx) Discharge Disposition: Discharge to home or self care 11/19/2024 6:57 AM CDT - 11/19/2024 8:15 AM CDT Emergency [facility] Emergency Department [address] [place] [phone] Mikala Hawthorne DO Sinus congestion (Primary Dx); Well adult health check Discharge Disposition: Discharge to home or self care 11/18/2024 7:39 AM CDT - 11/18/2024 8:39 AM CDT Emergency [facility] Emergency Department [address] [place] [phone] Nausea and vomiting, unspecified vomiting type (Primary Dx) Discharge Disposition: Discharge to home or self care 11/16/2024 5:41 PM CDT - 11/17/2024 4:41 AM CDT Emergency [facility] Emergency Department [address] [place] [phone] Hui Burleson MD Viral URI with cough (Primary Dx); Urinary tract infection without hematuria, site unspecified; STD exposure Discharge Disposition: Discharge to home or self care 11/16/2024 3:12 PM CDT - 11/16/2024 4:07 PM T Emergency [facility] Emergency Department [address] [place] [phone] Discharge Disposition: Left without being seen 11/16/2024 1:09 AM CDT - 11/16/2024 6:52 AM CDT Emergency [facility] [address] [place] [address] Acute UTI (Primary Dx) Discharge Disposition: Left without being seen 11/13/2024 7:47 PM CDT - 11/13/2024 9:31 PM CDT Emergency [facility] Emergency Department [address] [place] [address] Superficial laceration of right foot, initial encounter (Primary Dx) Discharge Disposition: Discharge to home or self care 11/13/2024 6:59 PM CDT - 11/13/2024 11:59 PM CDT Hospital Encounter [facility] Emergency, Room R Discharge Disposition: Discharge to home or self care 11/11/2024 8:58 AM CDT - 11/11/2024 10:52 AM CDT Emergency [facility] Emergency Department [address] [place] [phone] Viral syndrome (Primary Dx); Pain, dental Discharge Disposition: Discharge to home or self care 11/11/2024 1:43 AM CDT - 11/11/2024 3:49 AM CDT Emergency [facility] Emergency Department [address] [place] [address] Manuel Snyder MD Nausea (Primary Dx); Seasonal allergies Discharge Disposition: Discharge to home or self care 11/10/2024 5:08 PM CDT - 11/10/2024 11:59 PM CDT Hospital Encounter [facility] Emergency, Room R Discharge Disposition: Discharge to home or self care 11/10/2024 2:16 PM CDT - 11/10/2024 2:17 PM CDT Emergency [facility] Emergency Department [address] [place] [address] Discharge Disposition: Left without being seen from Last 3 Months Immunizations Immunization Administration Dates Next Due DTaP 03/13/2010, 0,02/17/2005,07/29 DTaP / Hep B / IPV 06/03/2009,02/17/2005, 005 DTaP / HiB / IPV 03/13/2010 DTaP 5 Pertussis 03/13/2010, 0,02/17/2005,07/29 HPV, Quadrivalent 03/26/2016 HPV9 03/26/2016 Hep A, Adult 06/03/2009 Hep A, Pediatric 06/03/2009 Hep A, Unspecified 06/03/2009 Hep B Vaccine 06/03/2009, 5,2004,05/14 Hep B, Adolescent or Pediatric 06/05/2009,2004,2004 HiB 03/13/2010,06/03/2009 Hib (PRP-OMP) 03/13/2010,06/03/2009 IPV 03/13/2010, 0,02/17/2005,07/29 Influenza, Quadrivalent, Nuzhat l Culture-based MDCK, Preservative Free, Antibiotic Free, Intramuscular 03/26/2016 Influenza, Quadrivalent, Spl it, Preservative Free, Intramuscular 03/26/2016 Influenza, Trivalent, Cell Culture-based MDCK, Preservative Free, Antibiotic Free, Intramuscular 03/26/2016 Influenza, Trivalent, Preser vative Free, Intramuscular 03/26/2016 MMR 03/13/2010,06/03/2009 Meningococcal MCV4P (Menactra) 03/26/2016 Tdap 03/26/2016 Varicella 03/13/2010,06/03/2009 Medical History Medical History Date Comments ADD (attention deficit disorder) Adhd Emotional disturbance of childhood Oppositional defiant disorder PTSD (post-traumatic stress disorder) Schizoaffective disorder (HCC) Homeless Cannabinoid hyperemesis syndrome Social History Tobacco Use Types Packs/Day Years Used Date Smoking Tobacco: Every Day Cigarettes Tobacco Cessation:Ready to Q uit: Not Asked; Counseling Given: Not Answered Alcohol Use Standard Drinks/Week Comments Not Currently [...] often do you attend chur ch or presybeterian services? Patient unable to answer 12/06/2024 Do you belong to any clubs o r organizations such as advent groups, unions, fraternal or athletic groups, or [...] any time in the past 12 m [facility], were you homeless or living in a care home (including now)? Yes 12/06/2024 [facility] [...] AM CDT Legal Sex Male 2:45 AM [employer] WORK[employer] Gender Identity Non-Binary 12/11/2024 8:10 AM CDT Sexual Orientation Straight 08/25/2020 2: 28 AM CDT Obstetrics History Last Filed Vital Signs Vital Sign Reading [...] Mass Index 18.75 12/18/2024 12:08 AM CDT Plan of Treatment Health Maintenance Due Date Last Done Comments Depression Screening 2004 Hepatitis C Screening 2004 HPV Vaccines (2 - 2-dose series) 09/24/2016 03/26/2016, 03/26/2016 Meningococcal B Vaccine (1 of 2 - Standard) 2020 Regular Well Visit/Exam 18-64 2022 Pneumococcal vaccine <65 (1 of 2 - PCV) 2023 Influenza Vaccine (#1) 2024 6, 03/26/2016, 03/26/2016, Additional history exists Chlamydia and Gonorrhea (GC/CT) Screening 12/07/2025 12/07/2024, 11/17/2024, 10/22/2022, Additional history exists DTaP/Tdap/Td Vaccine (6 - Td or Tdap) 03/26/2026 03/26/2016, 03/13/2010, 03/13/2010, Additional history exists Hepatitis B Screening Completed 06/05/2009 , 06/03/2009, 06/03/2009, Additional history exists Varicella Vaccines Completed 03/13/2010, 06/03/2009 Meningococcal Vaccine Aged Out 03/26/2016 No rené stevie eligible based on patient's age to complete this topic Procedures Procedure Name Priority Date/Time Associated Diagnosis Comments TRICHOMONAS VAGINALIS PCR Routine 12/07/2024 2:07 PM CDT N. GONORRHOEAE/C. TRACHOMATIS AMPLIFICATION STAT 12/07/2024 2:07 PM CDT URINALYSIS AND REFLEX TO MICROSCOPIC AND CULTURE STAT 12/07/2024 2:07 PM CDT STREPTOCOCCUS GROUP A PCR STAT 12/07/2024 2:06 PM CDT INFLUENZA A/B, RSV, AND COVID-19 PCR STAT 12/06/2024 9:38 PM CDT URINALYSIS, MICROSCOPIC ONLY STAT 12/02/2024 1:03 AM CDT DRUGS OF ABUSE SCREEN, URINE WITHOUT CONFIRMATION STAT 12/02/2024 1:03 AM CDT URINALYSIS AND REFLEX TO MICROSCOPIC AND CULTURE STAT 12/02/2024 1:03 AM CDT EGFR STAT 12/01/2024 11:44 PM CDT DIFFERENTIAL AUTO STAT 12/01/2024 11: 44 PM CDT SALICYLATE LEVEL STAT 12/01/2024 11:4 4 PM CDT ACETAMINOPHEN LEVEL STAT 12/01/2024 1 1:44 PM CDT ETHANOL STAT 12/01/2024 11:44 PM CDT THYROID FUNCTION CASCADE STAT 12/01/2024 11:44 PM CDT COMPREHENSIVE METABOLIC PANEL STAT 12/01/2024 11:44 PM CDT CBC WITH AUTO DIFFERENTIAL STAT 12/01/2024 11:44 PM CDT COVID-19 CORONAVIRUS RNA STAT 12/01/2024 11:44 PM CDT N. GONORRHOEAE/C. TRACHOMATIS AMPLIFICATION STAT 11/17/2024 4:37 AM CDT RESPIRATORY PATHOGEN PANEL STAT 11/16/2024 4:20 PM CDT EGFR STAT 11/16/2024 1:39 AM CDT URINALYSIS, MICROSCOPIC ONLY STAT 11/16/2024 1:39 AM CDT DIFFERENTIAL AUTO STAT 11/16/2024 1:3 9 AM CDT DRUGS OF ABUSE SCREEN, URINE WITHOUT CONFIRMATION STAT 11/16/2024 1:39 AM CDT ETHANOL STAT 11/16/2024 1:39 AM CDT THYROID FUNCTION CASCADE STAT 11/16/2024 1:39 AM CDT COMPREHENSIVE METABOLIC PANEL STAT 11/16/2024 1:39 AM CDT CBC WITH AUTO DIFFERENTIAL STAT 11/16/2024 1:39 AM CDT STREPTOCOCCUS GROUP A PCR STAT 11/16/2024 1:39 AM CDT COVID-19 CORONAVIRUS RNA STAT 11/16/2024 1:39 AM CDT URINALYSIS AND REFLEX TO MICROSCOPIC AND CULTURE STAT 11/16/2024 1:39 AM CDT XR CHEST 1 VIEW ED 11/11/2024 10:03 AM CDT INFLUENZA A/B, RSV, AND COVID-19 PCR STAT 11/11/2024 9:00 AM CDT from Last 3 Months Results * N. gonorrhoeae/C. trachomatis Amplification Urine (12/07/2024 2:07 PM CDT) C. trachomatis Not Detected Not Detected N. gonorrhoeae Not Detected Not Detected TUNDE Comment: Interpretive Data This assay detects Chlamydia trachomatis and Neisseria gonorrhoeae by nucleic acid amplification testing (NAAT). This assay has been cleared by the [place] Food and Drug administration. The performance characteristics of this test have been verified by the [facility]. The performance characteristics of this test have not been evaluated in individuals less than 14 years of age. Current Interpretive Data last revised 2023. Urine (None) 12/07/2024 2:07 PM CDT 12/07/2024 5:00 PM CDT Johanny Lerma NP LAB MICROBIOLOGY - GENE RAL ORDERABLES Final Result Performing Organization Address [facility] de Phone Number [facility] [phone] [address] Department [place] [address] * Trichomonas vaginalis PCR Urine (12/07/2024 2:07 PM CDT) Pathologist [facility] Emergency Department Trichomonas DNA Not Detected Not Detected Urine 12/07/2024 2:07 PM CDT 12/07/2024 5:00 PM CDT Narrative TUNDE - 12/07/2024 7:44 PM CDT Interpretive Data: This assay detects Trichomonas vaginalis by nucleic acid amplification testing (NAAT). This assay has been cleared by the [place] Food and Drug administration. The performance characteristics of this test have been verified by the [facility] laboratory. Excess blood in specimens may be inhibitory and result in false negative results. The performance of this test has not been evaluated in women or individuals less than 18 years of age. Johanny Lerma NP LAB MICROBIOLOGY - GENE RAL ORDERABLES Final Result Performing Organization Address [facility] Co de Phone Number [facility] [phone] [address] Department [place] [address] CH * Urinalysis reflex to microscopic and culture Urine (12/07/2024 2:07 PM CDT) Color, ur Yellow Yellow Comment:Testing performed by : [facility], [place] [address] Clarity, ur Clear Clear CERNER CH Comment:Testing performed [facility] : [facility] [address], [place] [address] Specific gravity, ur 1.029 1.003 - 1.030 CERNER Comment:Testing performed by : [facility], [place] [address] pH, urine 6.0 CERNER Comment: Interpretive Data U rine pH is affected by diet, medications, systemic acid-base disturbances, and renal tubular function. pH may affect urinary stone formation. For example, urine pH below 6.0 may help reduce the tendency for calcium phosphate stones and pH greater than 6.0 may reduce the tendency for uric acid stone formation. Source: [facility] [employer] Current Interpretive Data was last revised on 2017 Testing performed by: [facility], [place] [address] Protein, ur ql Trace Negative CERNER CH Comment:Testing performed [facility] : [facility] [address], [place] [address] Glucose, ur ql Negative Negative CERNER CH Comment:Testing performed by : [facility] [address], [place] [address] Ketones, ur Trace Negative CERNER CH Comment:Testing performed by : [facility] [address], [place] [address] Bilirubin, ur Negative Negative CERNER CH Comment:Testing performed by : [facility] [address], [place] [address] Blood, ur Negative Negative CERNER CH Comment:Testing performed by : [facility] [address], [place] [address] Urobilinogen, ur <2.0 <2.0 mg/dL CERNER CH Comment:Testing performed [facility] : [facility] [address], [place] [address] Nitrite, ur Negative Negative CERNER CH Comment:Testing performed [facility] : [facility] [address], [place] [address] Leukocyte esterase, ur Negative Negative CERNER CH Comment:Testing performed by : [facility], [address], [place] [address] UA reflex comment Reflex conditions for microscopic UA and culture not met. TUNDE LI Comment:Testing performed by : [facility], [place] [address] Urine 12/07/2024 2:07 PM CDT 12/07/2024 2:14 PM CDT Johanny Lerma NP LAB MICROBIOLOGY - GENE RAL ORDERABLES Final Result Performing Organization Address City/[facility]/ZIP Co de Phone Number TUNDE [address] [address] [facility] [employer] [place] [address] * Streptococcus Group A PCR Throat (12/07/2024 2:06 PM CDT) [facility] Strep A DNA Not Detected Not Detected Comment: This test is performed using the [employer] Xpert Group A Streptococcal Assay. This is a qualitative, real-time PCR assay that detects Group A Strep using throat specimens from patients suspected of having streptococcal pharyngitis. This assay does not detect other beta-hemolytic streptococci including Group C or Group G. Group C and G have been associated with pharyngitis and, occasionally, acute nephritis but do not cause rheumatic fever. If suspected, order Throat Culture, Routine. This assay has been cleared by the [place] Food and Drug Administration, and its performance characteristics have been verified by the performing laboratory. Testing performed by: [facility], [place] [address] Throat 12/07/2024 2:06 PM CDT 12/07/2024 2:14 PM CDT Johanny Lerma NP LAB MICROBIOLOGY - GENE RAL ORDERABLES Final Result Performing Organization Address City/[facility]/ZIP Co [place] Phone [place] [address] [address] [facility] [employer] [place] [address] * Influenza A/B, RSV, and COVID-19 PCR Nasopharyngeal (12/06/2024 9:38 PM CDT) [facility] COVID-19 RNA Negative Negative Influenza A RNA Negative Negative [facility] Influenza B RNA Negative Negative [facility] RSV RNA Negative Negative [facility] Comment: Interpretive data: Testing performed by [facility]. This test is performed using the [employer] Xpert Xpress CoV-2/Flu/RSV plus assay. This is a multiplex, real-time reverse transcriptase PCR assay intended for the qualitative detection of nucleic acid from SARS-CoV-2, influenza A, influenza B, and respiratory syncytial virus. This assay has been cleared by the [place] Food and Drug administration. The performance characteristics have been verified by the [facility]. Results must be considered in the clinical context, and a negative result does not rule out infection. Interpretive Data last revised 2023 Nasopharyngeal 12/06/2024 9: 38 PM CDT 12/06/2024 9:41 PM CDT Narrative [facility] - 12/06/2024 10:19 PM CDT Is the Patient experiencing symptoms consistent with COVID?->Yes Dequan Wong MD LAB MICROBIOLOGY - GENERAL ORDERABLES Final Result [address] Department [place] [address] * (ABNORMAL) Urinalysis reflex to microscopic and culture Urine (12/02/2024 1:03 AM CDT) Pathologist [facility] Color, ur Yellow Yellow Comment:Testing performed by : [address] [address] Clarity, ur Clear Clear TUNDE Comment:Testing performed by : [address] [address] Specific gravity, ur 1.039(H) 1.003 - 1.030 TUNDE Comment:Testing performed by : [address] [address] pH, urine 6.0 TUNDE Comment: Interpretive Data U rine pH is affected by diet, medications, systemic acid-base disturbances, and renal tubular function. pH may affect urinary stone formation. For example, urine pH below 6.0 may help reduce the tendency for calcium phosphate stones and pH greater than 6.0 may reduce the tendency for uric acid stone formation. Source: [facility] [employer] Current Interpretive Data was last revised on 2017 Testing performed by: [facility], [address] [place] [address]., [address] Protein, ur ql Trace(A) Negative TUNDE Comment:Testing performed by : [address] [address] Glucose, ur ql Negative Negative TUNDE Comment:Testing performed by : [address] [address] Ketones, ur 2+(A) Negative TUNDE Comment:Testing performed by : [address] [address] Bilirubin, ur Negative Negative TUNDE Comment:Testing performed by : [address] [address] Blood, ur Negative Negative TUNDE Comment:Testing performed by : [address] [address] Urobilinogen, ur 2.0(A) <2.0 mg/dL TUNDE Comment:Testing performed by : [address] [address] Nitrite, ur Negative Negative TUNDE Comment:Testing performed by : [address] [address] Leukocyte esterase, ur Negative Negative TUNDE Comment:Testing performed by : [address] [address] UA reflex comment Reflex to microscopic UA will be performed. TUNDE Comment:Testing performed by : [address] [address] Urine 12/02/2024 1:03 AM CDT 12/02/2024 1:05 AM CDT us Enoc Olson DO LAB MICROBIOLOGY - GENERAL ORD ERABLES Final Result TUNDE CEDEÑO [address] [facility] Department [place] [address] * (ABNORMAL) Drugs of Abuse Screen, Urine without Confirmation (12/02/2024 1:03 AM CDT) [facility] Amphetamine, ur Not Detected CutOff 500ng/mL Comment: Interpretive Data - Amphetamines: Samples containing greater than 500 ng/mL d-methamphetamine or other cross-reacting amphetamine compounds are reported as positive. Amphetamine immunoassays are subject to significant false positive rates due to cross-reactivity of non-amphetamine drugs. Confirmatory testing required for definitive results. Current Interpretive Data was last reviewed 2022. Testing performed by: [address] [address] Barbiturates, ur Not Detected CutOff 200ng/mL TUNDE Comment: Interpretive Data - Barbiturates: Samples containing greater than 200 ng/mL secobarbital or other cross-reacting barbiturate compounds are reported as positive. False positive and false negative results are possible. Confirmatory testing required for definitive results. Current Interpretive Data was last reviewed 2022. Testing performed by: [address] [address] Benzodiazepines, ur Not Detected CutOff 100ng/mL [facility] Comment: Interpretive Data - Benzodiazepines: Samples containing greater than 100 ng/mL nordiazepam or other cross-reacting compounds are reported as positive. False positive and false negative results are possible. Confirmatory testing required for definitive results. Current Interpretive Data was last reviewed 2022. Testing performed by: [address] [address] Cannabinoids, ur Screen Positive, presumptive (A) CutOff 50 ng/mL [facility] Comment: Interpretive Data - Cannabinoids: Samples containing greater than 50 ng/mL delta-9 THC -COOH or other cross- reacting compounds are reported as positive. False positive and false negative results are possible. Confirmatory testing required for definitive results. Current Interpretive Data was last reviewed 2022. Testing performed by: [address] [address] Cocaine, ur Not Detected CutOff 150ng/mL [facility] Comment: Interpretive Data - Cocaine: Samples containing greater than 150 ng/mL benzoylecgonine or other cross- reacting compounds are reported as positive. False positive and false negative results are possible. Confirmatory testing required for definitive results. Current Interpretive Data was last reviewed 2022. Testing performed by: [address] [address] Fentanyl, Ur Not Detected CutOff 5 ng/mL [facility] Comment: Interpretive Data - Fentanyl: Samples containing greater than 1 ng/mL fentanyl or other cross-reacting fentanyl compounds are reported as positive. False positive and false negative results are possible. Confirmatory testing required for definitive results. Current Interpretive Data was last reviewed 2022. Testing performed by: [facility], [address] [place] [address]., [address] Methadone, ur Not Detected CutOff 300ng/mL [facility] Comment: Interpretive Data - Methadone: Samples containing greater than 300 ng/mL d,l-methadone or other cross-reacting compounds are reported as positive. False positive and false negative results are possible. Confirmatory testing required for definitive results. Current Interpretive Data was last reviewed 2022. Testing performed by: [address] [address] Opiates, ur Not Detected CutOff 300ng/mL [facility] Comment: Interpretive Data - Opiates: Samples containing greater than 300 ng/mL morphine or other cross-reacting compounds are reported as positive. False positive and false negative results are possible. Confirmatory testing required for definitive results. Current Interpretive Data was last reviewed 2022. Testing performed by: [address] [address] Oxycodone, ur Not Detected CutOff 100ng/mL [facility] Comment: Interpretive Data - Oxycodone: Samples containing greater than 100 ng/mL oxycodone or other cross-reacting compounds are reported as positive. False positive and false negative results are possible. Confirmatory testing required for definitive results. Current Interpretive Data was last reviewed 2022. Testing performed by: [address] [address] Phencyclidine, ur Not Detected CutOff 25 ng/mL [facility] Comment: Interpretive Data - Phencyclidine: Samples containing greater than 25 ng/mL phencyclidine or other cross-reacting compounds are reported as positive. False positive and false negative results are possible. Confirmatory testing required for definitive results. Current Interpretive Data was last reviewed 2022. Testing performed by: [address] [address] Urine Creatinine 427 mg/dL TUNDE Comment: Interpretive Data Urine Creatinine: < 10 mg/dL is extremely dilute = or > 10 but < 20 mg/dL is dilute = or > 20 mg/dL is normal Current Interpretive Data was last revised on 2017. Testing performed by: [address] [address] Urine 12/02/2024 1:03 AM CDT 12/02/2024 1:05 AM CDT Narrative TUNDE - 12/02/2024 1:20 AM CDT Drug of Abuse screening is performed by immunoassay for medical purposes only. This is not to be used for Pain Management purposes. Enoc Olson DO LAB URINE ORDERABLES Final Res ult TUNDE [address] [facility] Department of Laboratories [place], [place] [id number] * (ABNORMAL) Urinalysis, microscopic only (12/02/2024 1:03 AM CDT) WBC, ur 0-5 0 - 5 /HPF Comment:Testing performed by : [address] [address] RBC, ur 0-2 0 - 2 /HPF TUNDE Comment:Testing performed by : [address] [address] Mucous, ur Present(A) TUNDE Comment:Testing performed by : [address] [address] Culture Reflex Comment Reflex conditions for urine culture (WBC >10) not met. TUNDE Comment:Testing performed by : [address] [address] Urine 12/02/2024 1:03 AM CDT 12/02/2024 1:05 AM CDT Enoc Olson DO LAB URINE ORDERABLES Final Res ult Performing Organization Address City/[facility]/ZIP Co de Phone Number TUNDE [address] [place] [address] * COVID-19 Coronavirus RNA Nasopharyngeal (12/01/2024 11:44 PM CDT) COVID-19 RNA Negative Negative Comment:Testing performed by : [facility], [address] [place] [address]., [address] Nasopharyngeal 12/01/2024 11 :44 PM CDT 12/01/2024 11:51 PM CDT Narrative [facility] 12/02/2024 12:24 AM CDT Is the patient experiencing any symptoms consistent with COVID (eg. Fever, cough, shortness of breath)?->No What is the reason for testing?->Screening prior to Behavioral health admission Interpretive data Testing performed by [facility]. This test is performed using the [employer] Xpert Xpress CoV-2 plus assay. This is a real-time RT-PCR test intended for the qualitative detection of nucleic acid from the SARS-CoV-2. This assay has been cleared by the [place] Food and Drug administration. The performance characteristics have been verified by the [facility]. Results must be considered in the clinical context, and a negative result does not rule out infection. Interpretive data last revised 2023. Interpretive data Testing performed by [facility]. This test is performed using the [employer] Xpert Xpress CoV-2 plus assay. This is a real-time RT-PCR test intended for the qualitative detection of nucleic acid from the SARS-CoV-2. This assay has been cleared by the [place] Food and Drug administration. The performance characteristics have been verified by the [facility]. Results must be considered in the clinical context, and a negative result does not rule out infection. Interpretive data last revised 2023. Enoc Olson DO LAB MICROBIOLOGY - GENERAL ORD ERABLES Final Result TUNDE [facility] Department [place] [address] * eGFR (12/01/2024 11:44 PM CDT) [facility] eGFR >90 >=60 mL/min/1. 73 m2 Comment: Interpretive Data Reference Interval Normal >/= 90 mL/min/1.73m2 Mildly decreased* 60 - 89 mL/min/1.73m2 Mildly to moderately decreased 45 - 59 mL/min/1.73m2 Moderately to severely decreased 30 - 44 mL/min/1.73m2 Severely decreased 15 - 29 mL/min/1.73m2 Kidney Failure < 15 mL/min/1.73m2 *Relative to young adult level Estimated glomerular filtration rate is determined by the 2020 CKD-EPI equation recommended by the National Kidney Foundation (A Unifying Approach to GFR Estimation: Recommendations of the NKF-ASK Task Force on Reassessing the Inclusion of Race in Diagnosing Kidney Disease, JASN 2020). The CKD-EPI equation should not be used for patients with unstable renal function and has not been validated in children and those over 70. Current interpretive data was last reviewed 2021. Testing performed by: [address] [address] Blood 12/01/2024 11:4 4 PM CDT 12/01/2024 11:51 PM CDT us Enoc Olson DO LAB BLOOD ORDERABLES Final Res ult TUNDE [address] [facility] Department [place] [address] * (ABNORMAL) Differential, auto (12/01/2024 11:44 PM CDT) [facility] Neutrophil abs 6.72(H) 1.50 - 6.50 K/cumm Comment:Testing performed by : [address] [address] Imm gran abs 0.03 0.00 - 0.10 K/cumm TUNDE Comment:Testing performed by : [address] [address] Lymphocyte abs 2.30 0.80 - 3.30 K/cumm [facility] Comment:Testing performed by : [address], [place]., [address] Monocyte abs 0.81(H) 0.20 - 0.80 K/cumm [facility] Comment:Testing performed by : [address], [place]., [address] Eosinophil abs 0.00 0.00 - 0.50 K/cumm [facility] Comment:Testing performed by : [address], [place]., [address] Basophil abs 0.03 0.00 - 0.10 K/cumm [facility] Comment:Testing performed by : [address] [address] Neutrophil pct 67.9 % [facility] Comment: Interpretive Data Percent cell count reference ranges are not reported, since discordance with absolute values may lead to misinterpretation of CBC data. Current Interpretive Data was last revised on 2017. Testing performed by: [address] [address] Imm gran pct 0.3 % [facility] Comment: Interpretive Data Percent cell count reference ranges are not reported, since discordance with absolute values may lead to misinterpretation of CBC data. Current Interpretive Data was last revised on 2017. Testing performed by: [address] [address] Lymphocyte pct 23.3 % [facility] Comment: Interpretive Data Percent cell count reference ranges are not reported, since discordance with absolute values may lead to misinterpretation of CBC data. Current Interpretive Data was last revised on 2017. Testing performed by: [address] [address] Monocyte pct 8.2 % [facility] Comment: Interpretive Data Percent cell count reference ranges are not reported, since discordance with absolute values may lead to misinterpretation of CBC data. Current Interpretive Data was last revised on 2017. Testing performed by: [address] [address] Eosinophil pct 0.0 % [facility] Comment: Interpretive Data Percent cell count reference ranges are not reported, since discordance with absolute values may lead to misinterpretation of CBC data. Current Interpretive Data was last revised on 2017. Testing performed by: [address] [address] Basophil pct 0.3 % TUNDE [place] Comment: Interpretive Data Percent cell count reference ranges are not reported, since discordance with absolute values may lead to misinterpretation of CBC data. Current Interpretive Data was last revised on 2017. Testing performed by: [address] [address] Blood 12/01/2024 11:4 4 PM CDT 12/01/2024 11:51 PM CDT Enoc Olson LAB BLOOD ORDERABLES Final Res ult Performing Organization Address [facility] de Phone Number [facility] [address] [place] [address] [employer] [place] [address] * Thyroid Function [place] (12/01/2024 11:44 PM CDT) Pathologist [facility] TSH 0.30 0.30 - 4.20 mcIUnit/mL Comment:Testing performed by : [address] [address] Blood 12/01/2024 11:4 4 PM CDT 12/01/2024 11:51 PM CDT Enoc SimpleOrderjurgen DO LAB BLOOD ORDERABLES Final Res ult Performing Organization Address [facility] de Phone Number [address] [place] [address] * CBC with auto differential (12/01/2024 11:44 PM CDT) WBC 9.89 3.80 - 9.90 K/cumm Comment:Testing performed by : [address] [address] Hgb 14.2 13.0 - 17.5 g/dL TUNDE CEDEÑO Comment:Testing performed by : [address], [address] Hct 41.2 38.9 - 50.3 % TUNDE Comment:Testing performed by : [address], [address] Plt 302 150 - 400 K/cumm TUNDE Comment:Testing performed by : [address], [address] MPV 11.4 9.1 - 12.3 fL TUNDE Comment:Testing performed by : [address], [address] RBC 4.88 4.30 - 5.80 M/cumm TUNDE Comment:Testing performed by : [address], [address] MCV 84.4 81.3 - 96.4 fL TUNDE Comment:Testing performed by : [address], [address] MCH 29.1 27.1 - 33.3 pg TUNDE Comment:Testing performed by : [address], [address] MCHC 34.5 32.3 - 35.7 g/dL TUNDE Comment:Testing performed by : [address], [address] RDW CV 13.4 11.1 - 14.9 % TUNDE Comment:Testing performed by : [address], [address] RDW SD 41.3 35.7 - 48.1 fL TUNDE Comment:Testing performed by : [address], [address] NRBC abs 0.00 0.00 - 0.01 K/cumm TUNDE Comment:Testing performed by : [address], [address] Blood Venous blood specimen / Unknown 12/01/2024 11:44 PM CDT 12/01/2024 11:51 PM CDT Enoc Olson DO LAB BLOOD ORDERABLES Final Res ult Performing Organization Address City/State/[facility] de Phone Number TUNDE [facility]0 [facility] [employer] [place] [address] * Ethanol (12/01/2024 11:44 PM CDT) Ethanol <10 <=10 mg/dL Comment: Interpretive Data Legal limit of intoxication > or = 80 mg/dL Levels > or = 400 mg/dL are potentially TOXIC. Current interpretive data was last revised on 2018. Testing performed by: [address] [address] Blood 12/01/2024 11:4 4 PM CDT 12/01/2024 11:51 PM CDT Enoc Olson DO LAB BLOOD ORDERABLES Final Res ult Performing Organization Address [facility] de Phone Number AGUSTINA[address] [address] * Acetaminophen level (12/01/2024 11:44 PM CDT) Acetaminophen <5 <=5 mcg/mL Comment: Interpretive Data Significant hepatic injury may occur and treatment with n-acetyl cysteine is generally recommended if the acetaminophen level exceeds: 150 mcg/mL at 4 hours after ingestion 75 mcg/mL at 8 hours after ingestion 38 mcg/mL at 12 hours after ingestion 19 mcg/mL at 16 hours after ingestion Consult toxicology or poison control ([phone]) for unknown ingestion time. Current interpretive data was last revised 2023. Testing performed by: [address] [address] Blood 12/01/2024 11:4 4 PM CDT 12/01/2024 11:51 PM CDT Enoc Olson DO LAB BLOOD ORDERABLES Final Res ult Performing Organization Address [facility] Co de Phone Number [place] [address] [facility] [employer] [place] [address] * Salicylate level (12/01/2024 11:44 PM CDT) Salicylate <1.0 <=1.0 mg/dL Comment: Interpretive Data Toxic: 30 mg/dL or greater. Current interpretive data was last revised 2023. Testing performed by: [address] [address] Blood 12/01/2024 11:4 4 PM CDT 12/01/2024 11:51 PM CDT us Enoc Olson DO LAB BLOOD ORDERABLES Final Res ult TUNDE [address] [facility] Department [place] [address] * Comprehensive metabolic panel (12/01/2024 11:44 PM CDT) Pathologist [facility] Sodium 137 135 - 145 mmol/L Comment:Testing performed by : [address] [address] Potassium, pl 3.8 3.3 - 4.9 mmol/L TUNDE Comment:Testing performed by : [address] [address] Chloride 100 97 - 110 mmol/L TUNDE Comment:Testing performed by : [address] [address] CO2 22 22 - 32 mmol/L TUNDE Comment:Testing performed by : [address] [address] Anion gap 15 2 - 15 mmol/L TUNDE Comment:Testing performed by : [address] [address] BUN 10 6 - 25 mg/dL TUNDE Comment:Testing performed by : [address] [address] Creatinine 0.86 0.80 - 1.30 mg/dL TUNDE Comment:Testing performed by : [address] [address] Glucose 106 70 - 199 mg/dL TUNDE Comment: Interpretive Data Fasting glucose >/= 126 mg/dl is diagnostic for diabetes. Fasting is defined as no caloric intake for at least 8 hours. Fasting glucose between 100 mg/dl to 125 mg/dl is diagnostic of prediabetes. In a patient with classic symptoms of hyperglycemia or hyperglycemic crisis, a random glucose >/= 200 mg/dl is diagnostic for diabetes. In the absence of unequivocal hyperglycemia, results should be confirmed by repeat testing. The classification and Diagnosis of Diabetes Diabetes Care 202; 46: S19-S40. Current interpretive data was last revised 2022. Testing performed by: [address] [address] Calcium 10.1 8.5 - 10.3 mg/dL TUNDE Comment:Testing performed by : [address] [address] Bilirubin, total 0.5 0.1 - 1.2 mg/dL TUNDE Comment:Testing performed by : [address] [address] Protein, pl 8.0 6.5 - 8.5 g/dL TUNDE Comment:Testing performed by : [address] [address] Albumin 4.9 3.5 - 5.0 g/dL TUNDE Comment:Testing performed by : [address] [address] Alk phos 102 40 - 130 Units/L TUNDE Comment:Testing performed by : [address] [address] ALT 14 7 - 55 Units/L TUNDE Comment:Testing performed by : [address] [address] AST 22 10 - 50 Units/L TUNDE Comment:Testing performed by : [address] [address] Blood 12/01/2024 11:4 4 PM CDT 12/01/2024 11:51 PM CDT us Enoc Olson DO LAB BLOOD ORDERABLES Final Res ult TUNDE [address] [facility] Department [place] [address] * N. gonorrhoeae/C. trachomatis Amplification Urine (11/17/2024 4:37 AM CDT) [facility] C. trachomatis Not Detected Not Detected N. gonorrhoeae Not Detected Not Detected [facility] Comment: Interpretive Data This assay detects Chlamydia trachomatis and Neisseria gonorrhoeae by nucleic acid amplification testing (NAAT). This assay has been cleared by the [place] Food and Drug administration. The performance characteristics of this test have been verified by the [facility]. The performance characteristics of this test have not been evaluated in individuals less than 14 years of age. Current Interpretive Data last revised 2023. Urine (None) 11/17/2024 4:37 AM CDT 11/17/2024 4:41 AM CDT Hui Burleson MD LAB MICROBIOLOGY - GENERAL ORD ERABLES Final Result TUNDE [address] Department [place] [address] [place] * Respiratory pathogen panel Nasopharyngeal (11/16/2024 4:20 PM CDT) [facility] Influenza A RNA Not Detected Not Detected Influenza B RNA Not Detected Not Detected [facility] RSV RNA Not Detected Not Detected [facility] COVID-19 RNA Not Detected Not Detected [facility] Coronavirus 229E RNA Not Detected Not Detected [facility] Coronavirus HKU1 RNA Not Detected Not Detected [facility] Coronavirus NL63 RNA Not Detected Not Detected [facility] Coronavirus OC43 RNA Not Detected Not Detected [facility] Adenovirus DNA Not Detected Not Detected [facility] Metapneumovirus RNA Not Detected Not Detected [facility] Rhinovirus/Enterov irus RNA Not Detected Not Detected [facility] Parainfluenza 1 RNA Not Detected Not Detected [facility] Parainfluenza 2 RNA Not Detected Not Detected [facility] Parainfluenza 3 RNA Not Detected Not Detected [facility] Parainfluenza 4 RNA Not Detected Not Detected [facility] B. pertussis DNA Not Detected Not Detected [facility] B. parapertussis DNA Not Detected Not Detected [facility] C. pneumoniae DNA Not Detected Not Detected [facility] M. pneumoniae DNA Not Detected Not Detected [facility] Comment: Interpretive Data The NUMBER26 FilmArray Respiratory Panel (RP2.1) assay is a multiplexed real-time PCR based nucleic acid test capable of simultaneous qualitative detection and identification of multiple respiratory viral and bacterial nucleic acids, including SARS Coronavirus 2 (the causative agent of COVID-19). The following bacteria, viruses and virus subtypes can be identified using the FilmArray RP2.1 assay: Bordetella pertussis, Bordetella parapertussis, Chlamydia pneumoniae, Mycoplasma pneumoniae, Adenovirus, SARS Coronavirus 2, seasonal coronaviruses (Coronavirus HKU1, Coronavirus NL63, Coronavirus 229E, and Coronavirus OC43), Influenza A, Influenza A subtype H1, Influenza A subtype H3, Influenza A subtype 2009 H1, Influenza B, Metapneumovirus, Parainfluenza 1, Parainfluenza 2, Parainfluenza 3, Parainfluenza 4, RSV, Rhinovirus/Enterovirus. Due to the genetic similarity between human Rhinovirus and Enterovirus, the FilmArray RP2.1 assay cannot reliably differentiate them. Coronavirus OC43 may cross-react with some isolates of Coronavirus HKU1. A dual positive result may be due to cross-reactivity or may indicate a co- infection. The detection and identification of specific viral and bacterial nucleic acids from individuals exhibiting signs and symptoms of a respiratory infection aids in the diagnosis of respiratory infection if used in conjunction with other clinical and epidemiological information. The results of this test should not be used as the sole basis for diagnosis, treatment, or other management decisions. Negative results in the setting of a respiratory illness may be due to infection with pathogens that are not detected by this test. Positive results do not rule out infection/co-infection with other organisms. The agent(s) detected by the FilmArray RP2.1 may not be the definite cause of disease. Additional testing (lab, imaging, etc.) may be necessary when evaluating a patient with possible respiratory tract infection. The FilmArray RP2.1 assay has FDA clearance for testing of SECRETARY OF STATE swabs. The performance characteristics of this assay have been determined by [facility]. Current interpretive data was last revised on 2020. Nasopharyngeal 11/16/2024 4: 20 PM CDT 11/16/2024 4:33 PM CDT Narrative TUNDE - 11/16/2024 5:36 PM CDT Is the Patient experiencing symptoms consistent with COVID?->Yes Surveillance testing for transplant patient?->No Hui Burleson MD LAB MICROBIOLOGY - GENERAL ORD ERABLES Final Result TUNDE [address] Department [place] [address] [place] * COVID-19 Coronavirus RNA Nasopharyngeal (11/16/2024 1:39 AM CDT) COVID-19 RNA Negative Negative Nasopharyngeal 11/16/2024 1: 39 AM CDT 11/16/2024 1:43 AM CDT Narrative TUNDE - 11/16/2024 2:17 AM CDT Is the patient experiencing any symptoms consistent with COVID (eg. Fever, cough, shortness of breath)?->No What is the reason for testing?->Screening prior to Behavioral health admission Interpretive data Testing performed by [facility]. This test is performed using the [employer] Xpert Xpress CoV-2 plus assay. This is a real-time RT-PCR test intended for the qualitative detection of nucleic acid from the SARS-CoV-2. This assay has been cleared by the [place] Food and Drug administration. The performance characteristics have been verified by the [facility]. Results must be considered in the clinical context, and a negative result does not rule out infection. Interpretive data last revised 2023. Interpretive data Testing performed by [facility]. This test is performed using the [employer] Xpert Xpress CoV-2 plus assay. This is a real-time RT-PCR test intended for the qualitative detection of nucleic acid from the SARS-CoV-2. This assay has been cleared by the [place] Food and Drug administration. The performance characteristics have been verified by the [facility]. Results must be considered in the clinical context, and a negative result does not rule out infection. Interpretive data last revised 2023. Stephanie Juarez NP LAB MICROBIOLOGY - GENERA L ORDERABLES Final Result Performing Organization Address [facility] Co de Phone Number TUNDE [address] [address] * Streptococcus Group A PCR Throat (11/16/2024 1:39 AM CDT) Pathologist [facility] Strep A DNA Not Detected Not Detected Comment: This test is performed using the [employer] Xpert Group A Streptococcal Assay. This is a qualitative, real-time PCR assay that detects Group A Strep using throat specimens from patients suspected of having streptococcal pharyngitis. This assay does not detect other beta-hemolytic streptococci including Group C or Group G. Group C and G have been associated with pharyngitis and, occasionally, acute nephritis but do not cause rheumatic fever. If suspected, order Throat Culture, Routine. This assay has been cleared by the [place] Food and Drug Administration, and its performance characteristics have been verified by the performing laboratory. Throat 11/16/2024 1:39 AM CDT 11/16/2024 1:43 AM CDT Stephanie Juarez NP LAB MICROBIOLOGY - GENERA L ORDERABLES Final Result Performing Organization Address [facility] Co de Phone Number TUNDE [address] [address] * eGFR (11/16/2024 1:39 AM CDT) Pathologist [facility] eGFR >90 >=60 mL/min/1. 73 m2 Comment: Interpretive Data Reference Interval Normal >/= 90 mL/min/1.73m2 Mildly decreased* 60 - 89 mL/min/1.73m2 Mildly to moderately decreased 45 - 59 mL/min/1.73m2 Moderately to severely decreased 30 - 44 mL/min/1.73m2 Severely decreased 15 - 29 mL/min/1.73m2 Kidney Failure < 15 mL/min/1.73m2 *Relative to young adult level Estimated glomerular filtration rate is determined by the 2020 CKD-EPI equation recommended by the National Kidney Foundation (A Unifying Approach to GFR Estimation: Recommendations of the NKF-ASK Task Force on Reassessing the Inclusion of Race in Diagnosing Kidney Disease, JASN 202). The CKD-EPI equation should not be used for patients with unstable renal function and has not been validated in children and those over 70. Current interpretive data was last reviewed 2021. Blood 11/16/2024 1:39 AM CDT 11/16/2024 1:43 AM CDT us Stephanie Juarez NP LAB BLOOD ORDERABLES Vicenta l Result [place] [id number] [facility] Department [place] [address] * (ABNORMAL) Differential, auto (11/16/2024 1:39 AM CDT) Neutrophil abs 7.07(H) 1.50 - 6.50 K/cumm Imm gran abs 0.02 0.00 - 0.10 K/cumm [facility] Lymphocyte abs 2.21 0.80 - 3.30 K/cumm [facility] Monocyte abs 0.77 0.20 - 0.80 K/cumm [facility] Eosinophil abs 0.07 0.00 - 0.50 K/cumm [facility] Basophil abs 0.05 0.00 - 0.10 K/cumm [facility] Neutrophil pct 69.3 % [facility] Comment: Interpretive Data Percent cell count reference ranges are not reported, since discordance with absolute values may lead to misinterpretation of CBC data. Current Interpretive Data was last revised on 2017. Imm gran pct 0.2 % [facility] Comment: Interpretive Data Percent cell count reference ranges are not reported, since discordance with absolute values may lead to misinterpretation of CBC data. Current Interpretive Data was last revised on 2017. Lymphocyte pct 21.7 % [facility] Comment: Interpretive Data Percent cell count reference ranges are not reported, since discordance with absolute values may lead to misinterpretation of CBC data. Current Interpretive Data was last revised on 2017. Monocyte pct 7.6 % [facility] Comment: Interpretive Data Percent cell count reference ranges are not reported, since discordance with absolute values may lead to misinterpretation of CBC data. Current Interpretive Data was last revised on 2017. Eosinophil pct 0.7 % [facility] Comment: Interpretive Data Percent cell count reference ranges are not reported, since discordance with absolute values may lead to misinterpretation of CBC data. Current Interpretive Data was last revised on 2017. Basophil pct 0.5 % TUNDE Comment: Interpretive Data Percent cell count reference ranges are not reported, since discordance with absolute values may lead to misinterpretation of CBC data. Current Interpretive Data was last revised on 2017. Blood 11/16/2024 1:39 AM CDT 11/16/2024 1:43 AM CDT Stephanie Juarez LAB BLOOD ORDERABLES Vicenta l Result Performing Organization Address [facility] Co de Phone Number [address] [employer] [address] * Thyroid Function [place] (11/16/2024 1:39 AM CDT) Pathologist [facility] TSH 1.96 0.30 - 4.20 mcIUnit/mL Blood 11/16/2024 1:39 AM CDT 11/16/2024 1:43 AM CDT [facility] BLOOD ORDERABLES Vicenta l Result Performing Organization Address [facility] Co de Phone Number [address] [address] * (ABNORMAL) Urinalysis reflex to microscopic and culture Urine (11/16/2024 1:39 AM CDT) Color, ur Yellow Yellow Clarity, ur Clear Clear [facility] Specific gravity, ur 1.036(H) 1.003 - 1.030 [facility] pH, urine 6.0 [facility] Comment: Interpretive Data U rine pH is affected by diet, medications, systemic acid-base disturbances, and renal tubular function. pH may affect urinary stone formation. For example, urine pH below 6.0 may help reduce the tendency for calcium phosphate stones and pH greater than 6.0 may reduce the tendency for uric acid stone formation. Source: [facility] Current Interpretive Data was last revised on 2017 Protein, ur ql Negative Negative [facility] Glucose, ur ql Negative Negative [facility] Ketones, ur Trace Negative [facility] Bilirubin, ur Negative Negative [facility] Blood, ur Negative Negative [facility] Urobilinogen, ur 4.0(A) <2.0 mg/dL [facility] Nitrite, ur Negative Negative [facility] Leukocyte esterase, ur 2+(A) Negative [facility] UA reflex comment Reflex to microscopic UA will be performed. [facility] Urine 11/16/2024 1:39 AM CDT 11/16/2024 1:43 AM CDT us Stephanie Juarez NP LAB MICROBIOLOGY - GENERA L ORDERABLES Final Result [place] [id number] [facility] Department [place] [address] * (ABNORMAL) CBC with auto differential (11/16/2024 1:39 AM CDT) WBC 10.19(H) 3.80 - 9.90 K/cumm Hgb 14.1 13.0 - 17.5 g/dL [facility] Hct 42.9 38.9 - 50.3 % [facility] Plt 256 150 - 400 K/cumm [facility] MPV 11.2 9.1 - 12.3 fL [facility] RBC 4.92 4.30 - 5.80 M/cumm [facility] MCV 87.2 81.3 - 96.4 fL [facility] MCH 28.7 27.1 - 33.3 pg [facility] MCHC 32.9 32.3 - 35.7 g/dL [facility] RDW CV 13.2 11.1 - 14.9 % [facility] RDW SD 42.5 35.7 - 48.1 fL [facility] NRBC abs 0.00 0.00 - 0.01 K/cumm [facility] Blood Venous blood specimen / Unknown 11/16/2024 1:39 AM CDT 11/16/2024 1:43 AM CDT Stephanie Juarez NP LAB BLOOD ORDERABLES Vicenta ingram Result [facility] [address] [facility] Department [place] [address] * (ABNORMAL) Drugs of Abuse Screen, Urine without Confirmation (11/16/2024 1:39 AM CDT) Pathologist [facility] Amphetamine, ur Not Detected CutOff 500ng/mL Comment: Interpretive Data - Amphetamines: Samples containing greater than 500 ng/mL d-methamphetamine or other cross-reacting amphetamine compounds are reported as positive. Amphetamine immunoassays are subject to significant false positive rates due to cross-reactivity of non-amphetamine drugs. Confirmatory testing required for definitive results. Current Interpretive Data was last reviewed 2022. Barbiturates, ur Not Detected CutOff 200ng/mL [facility] Comment: Interpretive Data - Barbiturates: Samples containing greater than 200 ng/mL secobarbital or other cross-reacting barbiturate compounds are reported as positive. False positive and false negative results are possible. Confirmatory testing required for definitive results. Current Interpretive Data was last reviewed 2022. Benzodiazepines, ur Not Detected CutOff 100ng/mL [facility] Comment: Interpretive Data - Benzodiazepines: Samples containing greater than 100 ng/mL nordiazepam or other cross-reacting compounds are reported as positive. False positive and false negative results are possible. Confirmatory testing required for definitive results. Current Interpretive Data was last reviewed 2022. Cannabinoids, ur Screen Positive, presumptive (A) CutOff 50 ng/mL [facility] Comment: Interpretive Data - Cannabinoids: Samples containing greater than 50 ng/mL delta-9 THC -COOH or other cross- reacting compounds are reported as positive. False positive and false negative results are possible. Confirmatory testing required for definitive results. Current Interpretive Data was last reviewed 2022. Cocaine, ur Not Detected CutOff 150ng/mL [facility] Comment: Interpretive Data - Cocaine: Samples containing greater than 150 ng/mL benzoylecgonine or other cross- reacting compounds are reported as positive. False positive and false negative results are possible. Confirmatory testing required for definitive results. Current Interpretive Data was last reviewed 2022. Fentanyl, Ur Not Detected CutOff 5 ng/mL [facility] Comment: Interpretive Data - Fentanyl: Samples containing greater than 5 ng/mL norfentanyl, fentanyl, or other cross-reacting fentanyl compounds are reported as positive. False positive and false negative results are possible. Confirmatory testing required for definitive results. Current Interpretive Data was last reviewed 2023. Methadone, ur Not Detected CutOff 300ng/mL [facility] Comment: Interpretive Data - Methadone: Samples containing greater than 300 ng/mL d,l-methadone or other cross-reacting compounds are reported as positive. False positive and false negative results are possible. Confirmatory testing required for definitive results. Current Interpretive Data was last reviewed 2022. Opiates, ur Not Detected CutOff 300ng/mL [facility] Comment: Interpretive Data - Opiates: Samples containing greater than 300 ng/mL morphine or other cross-reacting compounds are reported as positive. False positive and false negative results are possible. Confirmatory testing required for definitive results. Current Interpretive Data was last reviewed 2022. Oxycodone, ur Not Detected CutOff 100ng/mL [facility] Comment: Interpretive Data - Oxycodone: Samples containing greater than 100 ng/mL oxycodone or other cross-reacting compounds are reported as positive. False positive and false negative results are possible. Confirmatory testing required for definitive results. Current Interpretive Data was last reviewed 2022. Phencyclidine, ur Not Detected CutOff 25 ng/mL [facility] Comment: Interpretive Data - Phencyclidine: Samples containing greater than 25 ng/mL phencyclidine or other cross-reacting compounds are reported as positive. False positive and false negative results are possible. Confirmatory testing required for definitive results. Current Interpretive Data was last reviewed 2022. Urine Creatinine 501 mg/dL [facility] Comment: Interpretive Data Urine Creatinine: < 10 mg/dL is extremely dilute = or > 10 but < 20 mg/dL is dilute = or > 20 mg/dL is normal Current Interpretive Data was last revised on 2017. Urine 11/16/2024 1:39 AM CDT 11/16/2024 1:43 AM CDT Narrative [facility] - 11/16/2024 2:07 AM CDT Drug of Abuse screening is performed by immunoassay for medical purposes only. This is not to be used for Pain Management purposes. [facility] Clifton Alcrellar [employer] LAB URINE ORDERABLES Vicenta l Result Performing Organization Address [facility] Co de Phone Number [address] [address] * (ABNORMAL) Urinalysis, microscopic only (11/16/2024 1:39 AM CDT) WBC, ur 6-10(A) 0 - 5 /HPF RBC, ur 0-2 0 - 2 /HPF [facility] Epithelial cells, squamous, ur 1-5 0 - 5 /HPF [facility] Mucous, ur Present(A) [facility] Culture Reflex Comment Reflex conditions for urine culture (WBC >10) not met. [facility] Urine 11/16/2024 1:39 AM CDT 11/16/2024 1:43 AM CDT [facility]if[facility] memloominar LAB URINE ORDERABLES Vicenta l Result Performing Organization Address [facility] de Phone Number [address] [address] * Ethanol (11/16/2024 1:39 AM CDT) Pathologist [facility] Ethanol <10 <=10 mg/dL Comment: Interpretive Data Legal limit of intoxication > or = 80 mg/dL Levels > or = 400 mg/dL are potentially TOXIC. Current interpretive data was last revised on 2018. Blood 11/16/2024 1:39 AM CDT 11/16/2024 1:43 AM CDT [facility] El[facility] Wyattrellar LAB BLOOD ORDERABLES Viecnta l Result Performing Organization Address [facility] Co de Phone Number [address] Department [place] [address] * Comprehensive metabolic panel (11/16/2024 1:39 AM CDT) Sodium 140 135 - 145 mmol/L Potassium, pl 3.7 3.3 - 4.9 mmol/L [facility] Chloride 105 97 - 110 mmol/L [facility] CO2 24 22 - 32 mmol/L [facility] Anion gap 11 2 - 15 mmol/L [facility] BUN 11 6 - 25 mg/dL [facility] Creatinine 0.95 0.80 - 1.30 mg/dL [facility] Glucose 92 70 - 199 mg/dL [facility] Comment: Interpretive Data Fasting glucose >/= 126 mg/dl is diagnostic for diabetes. Fasting is defined as no caloric intake for at least 8 hours. Fasting glucose between 100 mg/dl to 125 mg/dl is diagnostic of prediabetes. In a patient with classic symptoms of hyperglycemia or hyperglycemic crisis, a random glucose >/= 200 mg/dl is diagnostic for diabetes. In the absence of unequivocal hyperglycemia, results should be confirmed by repeat testing. The classification and Diagnosis of Diabetes Diabetes Care 202; 46: S19-S40. Current interpretive data was last revised 2022. Calcium 8.9 8.5 - 10.3 mg/dL [facility] Bilirubin, total 0.2 0.1 - 1.2 mg/dL [facility] Protein, pl 7.2 6.5 - 8.5 g/dL [facility] Albumin 4.4 3.5 - 5.0 g/dL [facility] Alk phos 102 40 - 130 Units/L [facility] ALT 10 7 - 55 Units/L [facility] AST 16 10 - 50 Units/L [facility] Blood 11/16/2024 1:39 AM CDT 11/16/2024 1:43 AM CDT Stephanie Juarez NP LAB BLOOD ORDERABLES Vicenta ingram Result [facility] [address] [facility] Department [place] [address] * XR Chest 1 View (11/11/2024 10:03 AM CDT) Anatomical Region Laterality Modality Body, Chest N/A Computed Radiogr aphy 11/11/2024 10:2 2 AM CDT Narrative 11/11/2024 10:22 AM CDT EXAMINATION: XR CHEST 1 VIEW DATE: 11/11/2024 9:45 AM HISTORY: Shortness of breath COMPARISON: 08/25/2020. FINDINGS: Cardiopericardial silhouette is enlarged since previous exam but patient is rotated limiting the exam. Right hemithorax before meals opacity is new. Mild right basilar airspace opacity. Correlate with pneumonia. Recommend follow-up PA and lateral view. Electronically signed by: Papa Reyes M.D. Procedure Note Papa Reyes MD - 11/11/2024 EXAMINATION: XR CHEST 1 VIEW DATE: 11/11/2024 9:45 AM HISTORY: Shortness of breath COMPARISON: 08/25/2020. FINDINGS: Cardiopericardial silhouette is enlarged since previous exam but patient is rotated limiting the exam. Right hemithorax before meals opacity is new. Mild right basilar airspace opacity. Correlate with pneumonia. Recommend follow-up PA and lateral view. Electronically signed by: Papa Reyes M.D. Saulo Jaimes MD IMG XR PROCEDURES Final Re sult * Influenza A/B, RSV, and COVID-19 PCR Nasopharyngeal (11/11/2024 9:00 AM CDT) COVID-19 RNA Negative Negative Influenza A RNA Negative Negative [facility] Influenza B RNA Negative Negative [facility] RSV RNA Negative Negative [facility] Comment: Interpretive data: Testing performed by [facility]. This test is performed using the [employer] Xpert Xpress CoV-2/Flu/RSV plus assay. This is a multiplex, real-time reverse transcriptase PCR assay intended for the qualitative detection of nucleic acid from SARS-CoV-2, influenza A, influenza B, and respiratory syncytial virus. This assay has been cleared by the [place] Food and Drug administration. The performance characteristics have been verified by the [facility]. Results must be considered in the clinical context, and a negative result does not rule out infection. Interpretive Data last revised 2023 Nasopharyngeal 11/11/2024 9: 00 AM CDT 11/11/2024 9:05 AM CDT Narrative [facility] - 11/11/2024 9:48 AM CDT Is the Patient experiencing symptoms consistent with COVID?->Yes us Saulo Jaimes MD LAB MICROBIOLOGY - GENERAL ORDERABLES Final Result [facility] [address] [facility] [place] [address] from Last 3 Months Insurance [facility]AN [facility]AN [facility] MRA Advance Directives For more information, please contact: [phone] * Full Code (Latest Code Status on File) Date Activated Date Inactivated Comments 09/20/2020 3:58 PM 09/29/2020 6:01 PM * Full Code Date Activated Date Inactivated Comments 08/30/2020 4:50 PM 09/11/2020 7:13 PM * Full Code Date Activated Date Inactivated Comments 08/27/2020 2:56 PM 08/30/2020 4:39 PM Care Teams Assistant Branch Manager Relationship Specialty Start Date End Date No, Physician PCP - General 12/09/24 No, Physician 10/24/24 No, Physician 12/09/24 No, Physician 10/24/24 No, Physician 03/16/23
[2024-12-18 22:14] VITALS: BP 102/59; PULSE 76; RESP 20; TEMP 36.6; O2SAT 99
[2024-12-18 23:49] VITALS: BP 124/60; PULSE 61; RESP 17; O2SAT 98
[2024-12-18 23:55] VITALS: O2SAT 98
[2024-12-19 00:11] LABS: Influenza A QL RT-PCR Negative (Negative); Influenza B QL RT-PCR Negative (Negative); RSV RNA, RT-PCR Negative (Negative); SARS-CoV-2 RNA PCR Negative (Negative)
--- OUTSIDE RECORDS SUMMARY | 2024-12-19 00:24 | XMS_ITS | Encounter Summary ---
Author Organization [facility] Healthcare Address [address] [place] [address] Care Team Providers Care Tobacco Buyer Name Role Phone No, Physician Primary Care Provider No, Physician Primary Care Provider No, Physician Primary Care Provider [phone] No, Physician Primary Care Provider No, Physician Primary Care Provider No, Physician Unavailable No, Physician Unavailable No, Physician Unavailable No, Physician Unavailable No, Physician Unavailable Encounter Details Date Type Department Care Team (Late st Contact Info) Description 02/26/[address] [facility] Case Management [address] [place] [address] Zulema Sanchez MSW Social History [...] AM CDT Legal Sex Male 2:45 AM ACCOUNTING COORDINATOR Gender Identity Non-Binary 12/11/2024 8:10 AM CDT Sexual Orientation Straight 08/25/2020 2: 28 AM CDT documented as of this encounter Miscellaneous Notes * Plan of Care - Zulema Sanchez MSW - 02/26/2023 11:41 AM CDT CAREER SERVICES DIRECTOR received consult from LIUDMILA Jones to see patient for homeless. CAREER SERVICES DIRECTOR spoke with LIUDMILA who stated patient will not be speaking with today. CAREER SERVICES DIRECTOR spoke with patient who stated he does not have any family in the area. He stated he is from [place], but wanted to know if he could get transportation to his grandfather who is living at the [address] The patient stated he will be starting a new job with [employer] next week. Nitish RN/CM will set up transportation for patient. CAREER SERVICES DIRECTOR gave patient resources for pantries, shelters, transportation and [facility]. Zulema Sanchez LMSW [phone] documented in this encounter Plan of Treatment Not on file documented as of this encounter Visit Diagnoses Not on filedocumented in this encounter Additional Health Concerns Infection Onset Date Last Indicated Resolved Time COVID: Suspected 03/26/2023 03/26/2023 03/26/2023 8:04 AM ACCOUNTING COORDINATOR COVID: Suspected 03/31/2023 03/31/2023 03/31/2023 8:22 PM ACCOUNTING COORDINATOR COVID: Suspected 08/29/2023 08/29/2023 08/29/2023 9:48 PM [...] documented as of this encounter Care Teams Tobacco Buyer Relationship Specialty Start Date End Date No, [...]
--- OUTSIDE RECORDS SUMMARY | 2024-12-19 00:24 | XMS_ITS | Clinical Summary ---
Author Organization [facility] Address [address] [place] [address] Phone Care Team Providers Care Barrel Lathe Operator Outside Name Role Phone Provider, Unknown Primary Care Provider Unavaila ble Allergies Active Allergy Reactions Criticality Noted Date Comments Chlorpromazine Swelling Medium 10/06/2022 Medications No known medications Encounters Date Type Department Care Team Description 11/10/2024 5:28 PM CDT - 11/10/2024 5:51 PM CDT [facility] [address] [place] [phone] Dante Garland, AWA Nausea Discharge Disposition: Left Against Medical Advice 11/10/2024 9:58 AM CDT - 11/10/2024 11:02 AM CDT Emergency [facility] Emergency [address] [place] [phone] Dante Garland, PAC [place] Discharge Disposition: Discharged [...] on file Insurance [place] Care Teams Barrel Lathe Operator Outside Relationship Specialty Start Date End Date Provider, Unknown UNKNOWN PCP - General 02/11/23
--- NOTE | 2024-12-19 00:53 | ED_ITS ---
HPI - Abdominal Pain General Chief Complaint: Upper Respiratory Infection Stated Complaint: i have a virus Time Seen by Provider: 12/18/24 23:57 Source: patient Mode of arrival: ambulatory Limitations: other (patient is not very cooperative with history) History of Present Illness HPI narrative: This is a 19-year-old male that presents to the emergency department for nausea and vomiting. Ongoing over the last couple of hours. Patient denies any fevers, abdominal pain. Also reporting he would like to be evaluated by crisis. He denies any suicidal homicidal ideations. He will not elaborate further on this. Related Data Allergies Allergy/AdvReac Type Severity Reaction Status Date / Time chlorpromazine (From Allergy Swelling Verified 02/18/23 20:29 Thorazine) Review of Systems Review of Systems: All systems reviewed & are unremarkable except as noted in HPI and below PMFSH Past Medical History Medical History (Updated 12/19/24 @ 01:05 by Oriana Walker PA-C) PTSD (post-traumatic stress disorder) Social History Social History Substance use type: marijuana Exam Narrative: GENERAL: Well-appearing, well-nourished, and in no acute distress. HEAD: Normocephalic, atraumatic. EYES: EOMI. CHEST: Clear to auscultation. No respiratory distress. No wheezes rales or rhonchi HEART: Regular rate and rhythm. No murmur heard. Normal peripheral pulses. ABDOMEN: Soft, nontender, nondistended, normal active bowel sounds. EXTREMITIES: Normal range of motion. No edema. SKIN: Warm, dry, no rash. NEURO: No focal deficits. Alert and oriented x3. PSYCH: Normal mood and affect Course Vital Signs Vital signs: Vital Signs Temperature 98 F 12/18/24 22:14 Pulse Rate 76 12/18/24 22:14 Respiratory Rate 20 12/18/24 22:14 Blood Pressure 102/59 L 12/18/24 22:14 Pulse Oximetry 99 12/18/24 22:14 Oxygen Delivery Room Air 12/18/24 22:14 Temperature 98 F 12/18/24 22:14 Pulse Rate 61 12/18/24 23:49 Respiratory Rate 17 12/18/24 23:49 Blood Pressure 124/60 12/18/24 23:49 Pulse Oximetry 98 12/18/24 23:55 Oxygen Delivery Room Air 12/18/24 23:55 MDM - Abdominal Pain MDM Narrative Medical decision making narrative: Patient presents the emergency department for nausea and vomiting which started just prior to arrival. He has been resting in the ER for several hours without any vomiting. He was also requesting evaluation by crisis. He denies any suicidal or homicidal ideations. Refusing any blood draw or further workup at this time. Will be given follow-up with PCP Differential Diagnosis Differential diagnosis: Likely abdominal pain, gastroenteritis and other (anxiety, depression, PTSD) Lab Data Labs: Lab Results 12/18/24 Range/Units 23:17 Influenza A (RT-PCR) Negative (Negative) Influenza B (RT-PCR) Negative (Negative) RSV (RT-PCR) Negative (Negative) SARS-CoV-2 RNA (RT-PCR) Negative (Negative) Critical Care Time Critical Care Time Critical Care Time: No Discharge Plan Discharge Clinical Impression: Nausea and vomiting Qualifiers: Vomiting type: unspecified Qualified Code(s): R11.2 - Nausea with vomiting, unspecified Patient Disposition: Home Condition: Stable Instructions: Acute Nausea and Vomiting (ED) Additional Instructions: Return to the ER if you experience fever, abdominal pain with nausea and vomiting, you are unable to keep down liquids or solids, blood in the stool, pain or burning with urination, blood in the urine or any other symptoms that are concerning to you Small, frequent meals. [place] diet. Remain well hydrated Follow up with primary care doctor Patient Language: Mongolian Prescriptions: New ondansetron 4 mg tablet,disintegrating 4 mg PO Q8H PRN (Reason: nausea and vomiting) Qty: 7 0RF No Action bacitracin 500 unit/gram ointment 1 applic topical Q8H Qty: 14 0RF Follow-up/Referrals: PHYSICIAN,BULLET LUBRICATING MACHINE OPERATOR [Primary Care Provider, Internal Medicine] Jessee Pepe MD [Physician, Family Practice]
--- NOTE | 2024-12-19 01:05 | PC.NURSE ---
Attempted to obtain IV, labs, and zofran administration. Pt refused. Pt was advised that he can not and will not be evaluated by crisis without any kind of blood work for a medical clearance. Pt continued to refuse stating No. That's fine. No Iv. No blood work. DICK Gastelum and ED charge notified.
== END 2024-12-19 01:15 | disposition home or self-care (01) ==
PROVIDERS: Emergency Medicine; Emergency Provider Physician Assistant
DX: R11.2 Nausea with vomiting, unspecified (principal); Z20.822 Contact with and (suspected) exposure to COVID-19
CPT/HCPCS: 87637; 99283

== ENCOUNTER 2024-12-19 18:46 | Emergency (ER) | payer MEDICAID, SELFPAY ==
--- OUTSIDE RECORDS SUMMARY | 2024-12-17 20:20 | XMS_ITS | Encounter Summary ---
Author Organization [facility] Healthcare Address [address] [place] [address] Care Team Providers Care Spun Paste Machine Operator Name Role Phone No, Physician Primary Care Provider [phone] No, Physician Unavailable No, Physician Unavailable No, Physician Unavailable No, Physician Unavailable Reason for Visit * Reason Comments Sore Throat Encounter Details Date Type Department Care Team (Late st Contact Info) Description 12/17/2024 8:20 PM CDT - 12/17/2024 10:37 PM CDT Emergency [facility] Emergency Department [address] [place] [address] Viral pharyngitis (Primary Dx); Malingering Discharge Disposition: [...] How often do you attend chur or anabaptism services? Patient unable to answer 12/06/2024 Do you belong to any clubs o r organizations such as druze groups, unions, fraternal or athletic groups, or [...] time in the past 12 m [facility], were you homeless or living in a fci (including now)? 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 * URI, Viral, No Abx (Adult) (Slovak) documented in this encounter Medications at Time [...] illness documented in this encounter Care Teams Spun Paste Machine Operator Relationship Specialty Start Date End Date No, Physician PCP - General 12/09/24 No, Physician 10/24/24 No, Physician 12/09/24 No, Physician 10/24/24 No, Physician 03/16/23 documented as of this encounter
--- OUTSIDE RECORDS SUMMARY | 2024-12-17 20:20 | XMS_ITS | Encounter Summary ---
Author Organization [facility] Healthcare Address [address] [place] [address] Care Team Providers Care Occupational Therapy Assistant Name Role Phone No, Physician Primary Care Provider [phone] No, Physician Unavailable No, Physician Unavailable No, Physician Unavailable No, Physician Unavailable Reason for Visit * Reason Comments Sore Throat Encounter Details Date Type Department Care Team (Late st Contact Info) Description 12/17/2024 8:20 PM CDT - 12/17/2024 10:37 PM CDT Emergency [facility] Emergency Department [address] [place] [address] Viral pharyngitis (Primary Dx); Malingering Discharge Disposition: [...] How often do you attend chur or advent services? Patient unable to answer 12/06/2024 Do you belong to any clubs o r organizations such as hoahaoism groups, unions, fraternal or athletic groups, or [...] any time in the past 12 m [facility], were you homeless or living in a prison (including now)? 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 * URI, Viral, No Abx (Adult) (German) documented in this encounter Medications at Time [...] illness documented in this encounter Care Teams Occupational Therapy Assistant Relationship Specialty Start Date End Date No, Physician PCP - General 12/09/24 No, Physician 10/24/24 No, Physician 12/09/24 No, Physician 10/24/24 No, Physician 03/16/23 documented as of this encounter
--- OUTSIDE RECORDS SUMMARY | 2024-12-18 00:01 | XMS_ITS | Encounter Summary ---
Author Organization [facility] Healthcare Address [address] [place] [address] Care Team Providers Care Classifier Tender Name Role Phone No, Physician Primary Care Provider No, Physician Unavailable No, Physician Unavailable No, Physician Unavailable No, Physician Unavailable Reason for Visit * Reason Comments Nausea Encounter Details Date Type Department Care Team (Late st Contact Info) Description 12/18/2024 12:01 AM CDT - 12/18/2024 5:36 AM CDT Emergency [facility] Emergency Department [address] [place] [id number] Dequan Wong MD [address] [place] [address] Malingering (Primary Dx) Discharge Disposition: Discharge to [...] answer 12/06/2024 How often do you attend [facility] or adventism services? Patient unable to answer 12/06/2024 Do you belong to any clubs o r organizations such as taoism groups, unions, fraternal or athletic groups, or [...] any time in the past 12 m [facility], were you homeless or living in a assisted (including now)? 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 Gender Identity Non-Binary 12/11/2024 8:10 AM CDT [...] onset type 09/16/2020 Schizoaffective disorder, bipolar type ([facility]) 09/16/2020 Pain due to dental caries 08/29/2020 Schizophreniform disorder ([facility]) 08/27/2020 Oppositional defiant disorder 03/24/2016 Asthma 03/23/2016 Child in foster care 02/18/2016 Influenza 05/28/2011 Past Medical History: Diagnosis Date ADD (attention deficit disorder) ADHD Cannabinoid hyperemesis syndrome Emotional disturbance of childhood Homeless Oppositional defiant disorder PTSD (post-traumatic stress disorder) Schizoaffective disorder ([facility]) No past surgical history on file. No [...] of Care Malingering Dequan Wong MD 12/18/24 0230 * Roro Menard RN - 12/18/2024 12:03 AM CDT Pt arrived via ems with reports of nausea and vomiting, abd pain, c/o virus in his throat, pt speaking in full clear sentences, pt states I don't want labs, this rn explained to him if he is just here for some where to rest and stay safe, pt now asking for food * Nadine Hung, FABIAN - 12/18/2024 12:01 AM CDT Bed: ED05 Expected date: Expected time: Means of arrival: Comments: Medic 121 Nadine Hung, FABIAN 12/18/24 0001 documented in this encounter Plan of Treatment Not on file documented as of this encounter Visit Diagnoses Diagnosis Malingering- Primary Person feigning illness documented in this encounter Care Teams Classifier Tender Relationship Specialty Start Date End Date No, Physician PCP - General 12/09/24 No, Physician 10/24/24 No, Physician 12/09/24 No, Physician 10/24/24 No, Physician 03/16/23 documented as of this encounter
--- OUTSIDE RECORDS SUMMARY | 2024-12-18 00:01 | XMS_ITS | Encounter Summary ---
Author Organization [facility] Healthcare Address [address] [place] [address] Care Team Providers Care Supervisor Hard Candy Name Role Phone No, Physician Primary Care Provider [phone] No, Physician Unavailable No, Physician Unavailable No, Physician Unavailable No, Physician Unavailable Reason for Visit * Reason Comments Nausea Encounter Details Date Type Department Care Team (Late st Contact Info) Description 12/18/2024 12:01 AM CDT - 12/18/2024 5:36 AM CDT Emergency [facility] Emergency Department [address] [place] [id number] Dequan Wong MD [address] [place] [address] Malingering (Primary Dx) Discharge Disposition: Discharge to [...] answer 12/06/2024 How often do you attend [facility] or jew services? Patient unable to answer 12/06/2024 Do you belong to any clubs o r organizations such as samaritan groups, unions, fraternal or athletic groups, or [...] any time in the past 12 m [facility], were you homeless or living in a [facility] (including now)? 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 Gender Identity Non-Binary 12/11/2024 8:10 AM CDT [...] onset type 09/16/2020 Schizoaffective disorder, bipolar type ([facility]) 09/16/2020 Pain due to dental caries 08/29/2020 Schizophreniform disorder ([facility]) 08/27/2020 Oppositional defiant disorder 03/24/2016 Asthma 03/23/2016 Child in foster care 02/18/2016 Influenza 05/28/2011 Past Medical History: Diagnosis Date ADD (attention deficit disorder) ADHD Cannabinoid hyperemesis syndrome Emotional disturbance of childhood Homeless Oppositional defiant disorder PTSD (post-traumatic stress disorder) Schizoaffective disorder ([facility]) No past surgical history on file. No [...] illness documented in this encounter Care Teams Supervisor Hard Candy Relationship Specialty Start Date End Date No, Physician PCP - General 12/09/24 No, Physician 10/24/24 No, Physician 12/09/24 No, Physician 10/24/24 No, Physician 03/16/23 documented as of this encounter
--- OUTSIDE RECORDS SUMMARY | 2024-12-19 18:49 | XMS_ITS | Encounter Summary ---
Author Organization [facility] Healthcare Address [address] [place] [address] Care Team Providers Care Shrimp Peeler Name Role Phone No, Physician Primary Care Provider No, Physician Primary Care Provider No, Physician Primary Care Provider [phone] No, Physician Primary Care Provider No, Physician Primary Care Provider No, Physician Unavailable No, Physician Unavailable No, Physician Unavailable No, Physician Unavailable No, Physician Unavailable Encounter Details Date Type Department Care Team (Late st Contact Info) Description 02/26/2023 Documentation [facility] Case Management [address] [place] [address] Zulema Sanchez MSW Social History [...] AM CDT Legal Sex Male 2:45 AM TRACTOR TRAILER MECHANIC Gender Identity Non-Binary 12/11/2024 8:10 AM CDT Sexual Orientation Straight 08/25/2020 2: 28 AM CDT documented as of this encounter Miscellaneous Notes * Plan of Care - Zulema Sanchez MSW - 02/26/2023 11:41 AM CDT SENIOR MAINFRAME PROGRAMMER ANALYST received consult from LIUDMILA Jones to see patient for homeless. SENIOR MAINFRAME PROGRAMMER ANALYST spoke with LIUDMILA who stated patient will not be speaking with today. SENIOR MAINFRAME PROGRAMMER ANALYST spoke with patient who stated he does not have any family in the area. He stated he is from [place], but wanted to know if he could get transportation to his grandfather who is living at the [address] The patient stated he will be starting a new job with [employer] next week. Nitish RN/CM will set up transportation for patient. SENIOR MAINFRAME PROGRAMMER ANALYST gave patient resources for pantries, shelters, transportation and [facility]. Zulema Sanchez LMSW [phone] documented in this encounter Plan of Treatment Not on file documented as of this encounter Visit Diagnoses Not on filedocumented in this encounter Additional Health Concerns Infection Onset Date Last Indicated Resolved Time COVID: Suspected 03/26/2023 03/26/2023 03/26/2023 8:04 AM TRACTOR TRAILER MECHANIC COVID: Suspected 03/31/2023 03/31/2023 03/31/2023 8:22 PM TRACTOR TRAILER MECHANIC COVID: Suspected 08/29/2023 08/29/2023 08/29/2023 9:48 PM [...] documented as of this encounter Care Teams Shrimp Peeler Relationship Specialty Start Date End Date No, [...]
--- OUTSIDE RECORDS SUMMARY | 2024-12-19 18:49 | XMS_ITS | Clinical Summary ---
Author Organization [facility] Address [address] [place] [address] Phone Care Team Providers Care As400 Programmer Analyst Name Role Phone Provider, Unknown Primary Care Provider Unavaila ble Allergies Active Allergy Reactions Criticality Noted Date Comments Chlorpromazine Swelling Medium 10/06/2022 Medications No known medications Encounters Date Type Department Care Team Description 11/10/2024 5:28 PM CDT - 11/10/2024 5:51 PM CDT [facility] [address] [place] [id number] Dante Garland, AWA Nausea Discharge Disposition: Left Against Medical Advice 11/10/2024 9:58 AM CDT - 11/10/2024 11:02 AM CDT Emergency [facility] Emergency [address] [place] [phone] Dante Garland, PAC Malingering Discharge Disposition: Discharged [...] on file Insurance [place] Care Teams As400 Programmer Analyst Relationship Specialty Start Date End Date Provider, Unknown UNKNOWN PCP - General 02/11/23
--- NOTE | 2024-12-19 19:01 | PC.NURSE ---
Pt. called to be triaged. Pt. states I don't actually want to be here. Is it ok if I leave? Pt. seen walking out of ER, gait steady.
--- OUTSIDE RECORDS SUMMARY | 2024-12-19 19:38 | XMS_ITS | Encounter Summary ---
Author Organization [facility] Healthcare Address [address] [place] [address] Care Team Providers Care Cd Mixer Helper Name Role Phone No, Physician Primary Care Provider [phone] No, Physician Primary Care Provider [phone] No, Physician Primary Care Provider [phone] No, Physician Primary Care Provider No, Physician Primary Care Provider No, Physician Unavailable No, Physician Unavailable No, Physician Unavailable No, Physician Unavailable No, Physician Unavailable Encounter Details Date Type Department Care Team (Late st Contact Info) Description 02/26/2023 Documentation [facility] Case Management [address] [place] [address] Zulema Sanchez MSW Social History [...] AM CDT Legal Sex Male 2:45 AM BUILDING DISMANTLER Gender Identity Non-Binary 12/11/2024 8:10 AM CDT Sexual Orientation Straight 08/25/2020 2: 28 AM CDT documented as of this encounter Miscellaneous Notes * Plan of Care - Zulema Sanchez MSW - 02/26/2023 11:41 AM CDT GLOVE OPERATOR received consult from LIUDMILA Jones to see patient for homeless. GLOVE OPERATOR spoke with LIUDMILA who stated patient will not be speaking with today. GLOVE OPERATOR spoke with patient who stated he does not have any family in the area. He stated he is from [place], but wanted to know if he could get transportation to his grandfather who is living at the [address] The patient stated he will be starting a new job with [employer] next week. Nitish RN/CM will set up transportation for patient. GLOVE OPERATOR gave patient resources for pantries, shelters, transportation and [facility]. Zulema Sanchez LMSW [phone] documented in this encounter Plan of Treatment Not on file documented as of this encounter Visit Diagnoses Not on filedocumented in this encounter Additional Health Concerns Infection Onset Date Last Indicated Resolved Time COVID: Suspected 03/26/2023 03/26/2023 03/26/2023 8:04 AM BUILDING DISMANTLER COVID: Suspected 03/31/2023 03/31/2023 03/31/2023 8:22 PM BUILDING DISMANTLER COVID: Suspected 08/29/2023 08/29/2023 08/29/2023 9:48 PM [...] documented as of this encounter Care Teams Cd Mixer Helper Relationship Specialty Start Date End Date No, [...]
--- OUTSIDE RECORDS SUMMARY | 2024-12-19 19:38 | XMS_ITS | Clinical Summary ---
Author Organization [facility] Address [address] [place] [address] Phone Care Team Providers Care Director Industrial Museum Name Role Phone Provider, Unknown Primary Care Provider Unavaila ble Allergies Active Allergy Reactions Criticality Noted Date Comments Chlorpromazine Swelling Medium 10/06/2022 Medications No known medications Encounters Date Type Department Care Team Description 11/10/2024 5:28 PM CDT - 11/10/2024 5:51 PM CDT [facility] [address] [place] [phone] Dante Garland, AWA Nausea Discharge Disposition: Left Against Medical Advice 11/10/2024 9:58 AM CDT - 11/10/2024 11:02 AM CDT Emergency [facility] Emergency [address] [place] [phone] Dante Garland, PAC Malingering Discharge Disposition: Discharged [...] on file Insurance [place]ID [place] Care Teams Director Industrial Museum Relationship Specialty Start Date End Date Provider, Unknown UNKNOWN PCP - General 02/11/23
== END 2024-12-19 19:50 | disposition left against medical advice (07) ==
DX: Z53.21 Procedure and treatment not carried out due to patient leaving prior to being seen by health care provider (principal)
CPT/HCPCS: 99199